=== PATIENT | female | born 1980 | race Asian ===

== ENCOUNTER 2021-04-24 21:46 | Emergency (ER) | payer BC, MEDICAID ==
[~2021-04-24] VITALS: Ht 165.1 cm; Wt 104.5 kg
[2021-04-24 23:44] LABS: BASOPHILS % (AUTO) 0.5 % (0.0-2.0); EOSINOPHILS % (AUTO) 1.6 % (1.0-6.0); HEMATOCRIT 37.3 % (36-46); HEMOGLOBIN 11.9 g/dL (12.0-16.0); LYMPHOCYTES # (AUTO) 2.7 K/uL (1.0-4.8); LYMPHOCYTES % (AUTO) 29.2 % (22.0-44.0); MEAN CORPUSCULAR HEMOGLOBIN 23.6 pg (26.0-34.0); MEAN CORPUSCULAR HGB CONC 31.9 G/dL (31.0-37.0); MEAN CORPUSCULAR VOLUME 74 fL (80-100); MONOCYTES # (AUTO) 1.4 K/uL (0.1-1.0); MONOCYTES % (AUTO) 15.6 % (2.0-9.0); NEUTROPHILS # (AUTO) 4.9 K/uL (1.8-7.7); NEUTROPHILS % (AUTO) 53.1 % (40.0-70.0); PLATELET COUNT (AUTO) 324 K/uL (150-450); RED BLOOD CELL COUNT(AUTO) 5.04 MIL/uL (4.00-5.20); RED CELL DISTRIBUTION WIDTH 16.8 % (11.5-14.5)
[2021-04-25 00:03] LABS: ALANINE AMINOTRANSFERASE 15 U/L (12-78); ALBUMIN 3.1 g/dL (3.4-5.0); ALKALINE PHOSPHATASE 63 U/L (46-116); ANION GAP 5 mmol/L (8-16); ASPARTATE AMINOTRANSFERASE 8 U/L (15-37); BILIRUBIN,TOTAL 0.1 mg/dL (0.1-1.0); CALCIUM, TOTAL 8.7 mg/dL (8.8-10.5); CARBON DIOXIDE 29 mmol/L (22-29); CHLORIDE 103 mmol/L (98-107); CREATININE 0.97 mg/dL (0.60-1.30); GLOMERULAR FILTR. RATE CALC > 60 mL/min (>60); GLUCOSE,RANDOM 73 mg/dL (70-110); HCG,QUANTITATIVE < 1 mIU/mL (0-6); POTASSIUM 4.2 mmol/L (3.5-5.1); SODIUM SERUM 137 mmol/L (136-145); TOTAL PROTEIN, SERUM 7.5 g/dL (6.4-8.2); UREA NITROGEN, BLOOD 13 mg/dL (7-18)
[2021-04-25] MEDS ORDERED: MECLIZINE HCL 25 MG TABLET PO ONE (01:15)
[2021-04-25 03:20] VITALS: BP 150/96
== END 2021-04-25 03:22 | disposition home or self-care (01) ==
LOC: EMS 21:49
DX: R42 Dizziness and giddiness (principal); I10 Essential (primary) hypertension
CPT/HCPCS: 80053; 84702; 85025; 93005; 99284

== ENCOUNTER 2021-05-07 21:33 | Emergency (ER) | payer MEDICAID ==
[~2021-05-07] VITALS: Ht 165.1 cm; Wt 104.5 kg
[2021-05-07 22:12] LABS: BASOPHILS % (AUTO) 1.1 % (0.0-2.0); EOSINOPHILS % (AUTO) 3.9 % (1.0-6.0); HEMATOCRIT 36.4 % (36-46); HEMOGLOBIN 11.7 g/dL (12.0-16.0); LYMPHOCYTES # (AUTO) 2.9 K/uL (1.0-4.8); LYMPHOCYTES % (AUTO) 30.2 % (22.0-44.0); MEAN CORPUSCULAR HEMOGLOBIN 23.6 pg (26.0-34.0); MEAN CORPUSCULAR HGB CONC 32.1 G/dL (31.0-37.0); MEAN CORPUSCULAR VOLUME 74 fL (80-100); MONOCYTES # (AUTO) 1.4 K/uL (0.1-1.0); MONOCYTES % (AUTO) 14.6 % (2.0-9.0); NEUTROPHILS # (AUTO) 4.9 K/uL (1.8-7.7); NEUTROPHILS % (AUTO) 50.2 % (40.0-70.0); PLATELET COUNT (AUTO) 351 K/uL (150-450); RED BLOOD CELL COUNT(AUTO) 4.94 MIL/uL (4.00-5.20); RED CELL DISTRIBUTION WIDTH 17.2 % (11.5-14.5)
[2021-05-07 22:31] LABS: ANION GAP 9 mmol/L (8-16); CARBON DIOXIDE 26 mmol/L (22-29); CHLORIDE 101 mmol/L (98-107); CREATININE 0.71 mg/dL (0.60-1.30); GLOMERULAR FILTR. RATE CALC > 60 mL/min (>60); GLUCOSE,RANDOM 83 mg/dL (70-110); POTASSIUM 3.8 mmol/L (3.5-5.1); SODIUM SERUM 136 mmol/L (136-145); UREA NITROGEN, BLOOD 9 mg/dL (7-18)
[2021-05-07 22:44] LABS: ALANINE AMINOTRANSFERASE 20 U/L (12-78); ALBUMIN 2.9 g/dL (3.4-5.0); ALKALINE PHOSPHATASE 62 U/L (46-116); ASPARTATE AMINOTRANSFERASE 8 U/L (15-37); BILIRUBIN,TOTAL 0.2 mg/dL (0.1-1.0); CREATINE KINASE, TOTAL ONLY 47 U/L (26-192); HCG,QUANTITATIVE < 1 mIU/mL (0-6); LIPASE 76 U/L (73-393); TOTAL PROTEIN, SERUM 7.5 g/dL (6.4-8.2)
[2021-05-08 03:00] VITALS: BP 179/105
== END 2021-05-08 04:18 | disposition home or self-care (01) ==
LOC: EMS 21:34
DX: R07.9 Chest pain, unspecified (principal); I10 Essential (primary) hypertension; E78.00 Pure hypercholesterolemia, unspecified; F31.9 Bipolar disorder, unspecified; J45.909 Unspecified asthma, uncomplicated; F20.9 Schizophrenia, unspecified
CPT/HCPCS: 80053; 82550; 83690; 83735; 84484; 84702; 85025; 85379; 93005; 99284

== ENCOUNTER 2021-05-14 06:10 | Emergency (ER) | payer MEDICAID ==
[~2021-05-14] VITALS: Ht 165.1 cm; Wt 104.5 kg
[2021-05-14] MEDS ORDERED: FLUO20CA36 PO (06:25)
[2021-05-14] MEDS ORDERED: DIVA-80 PO (06:25)
[2021-05-14] MEDS ORDERED: ATOR40TA28 PO (06:25)
[2021-05-14] MEDS ORDERED: LORA10TA7 PO (06:25)
[2021-05-14] MEDS ORDERED: HALO50VI4 IM (06:25)
[2021-05-14] MEDS ORDERED: ALBU8.5H8 IH (06:25)
[2021-05-14] MEDS ORDERED: AMLO-257 PO (06:25)
[2021-05-14 06:59] VITALS: BP 125/82
[2021-05-14] MEDS ORDERED: DiphenhydrAMINE HCL 50 MG/ML VIAL IVP ONE (07:00)
== END 2021-05-14 07:51 | disposition home or self-care (01) ==
LOC: EMS 06:11
DX: G25.9 Extrapyramidal and movement disorder, unspecified (principal); F31.9 Bipolar disorder, unspecified; I10 Essential (primary) hypertension; F20.9 Schizophrenia, unspecified; J45.909 Unspecified asthma, uncomplicated; Z79.899 Other long term (current) drug therapy; Z91.041 Radiographic dye allergy status; Z88.8 Allergy status to other drugs, medicaments and biological substances
CPT/HCPCS: 96372; 99283; J1200

== ENCOUNTER 2021-05-14 09:39 | Emergency (ER) | payer MEDICAID ==
[~2021-05-14] VITALS: Ht 165.1 cm; Wt 104.5 kg
[~2021-05-14 09:39] MED LIST: ALBU8.5H8 IH; AMLO-257 PO; ATOR40TA28 PO; DIVA-80 PO; FLUO20CA36 PO; HALO50VI4 IM; LORA10TA7 PO
[2021-05-14] MEDS ORDERED: HydrOXYzine PAMOATE 50 MG CAPSULE PO ONE (10:15)
[2021-05-14 11:43] VITALS: BP 145/78
== END 2021-05-14 11:46 | disposition home or self-care (01) ==
LOC: EMS 09:39
DX: F41.9 Anxiety disorder, unspecified (principal); I10 Essential (primary) hypertension; F20.9 Schizophrenia, unspecified; E78.00 Pure hypercholesterolemia, unspecified
CPT/HCPCS: 99283

== ENCOUNTER 2021-08-20 04:02 | Emergency (ER) | payer MEDICAID ==
[~2021-08-20] VITALS: Ht 167.6 cm; Wt 99.1 kg
[2021-08-20 07:47] VITALS: BP 126/72
== END 2021-08-20 07:49 | disposition home or self-care (01) ==
LOC: EMS 04:03
DX: R25.2 Cramp and spasm (principal); F31.9 Bipolar disorder, unspecified; E78.00 Pure hypercholesterolemia, unspecified; I10 Essential (primary) hypertension; F20.9 Schizophrenia, unspecified; Z79.899 Other long term (current) drug therapy; Z88.8 Allergy status to other drugs, medicaments and biological substances
CPT/HCPCS: 93970; 99284; Z7502

== ENCOUNTER 2021-08-26 20:19 | Emergency (ER) | payer MEDICAID ==
[~2021-08-26] VITALS: Ht 167.6 cm; Wt 97.3 kg
[2021-08-26 21:29] LABS: BASOPHILS % (AUTO) 1.2 % (0.0-2.0); EOSINOPHILS % (AUTO) 1.2 % (1.0-6.0); HEMATOCRIT 31.5 % (36-46); LYMPHOCYTES # (AUTO) 3.5 K/uL (1.0-4.8); LYMPHOCYTES % (AUTO) 33.3 % (22.0-44.0); MEAN CORPUSCULAR HEMOGLOBIN 21.2 pg (26.0-34.0); MEAN CORPUSCULAR HGB CONC 31.9 G/dL (31.0-37.0); MEAN CORPUSCULAR VOLUME 66 fL (80-100); MONOCYTES # (AUTO) 1.4 K/uL (0.1-1.0); MONOCYTES % (AUTO) 13.3 % (2.0-9.0); NEUTROPHILS # (AUTO) 5.3 K/uL (1.8-7.7); PLATELET COUNT (AUTO) 407 K/uL (150-450); RED BLOOD CELL COUNT(AUTO) 4.74 MIL/uL (4.00-5.20); RED CELL DISTRIBUTION WIDTH 19.1 % (11.5-14.5)
[2021-08-26 21:37] LABS: ANION GAP 6 mmol/L (8-16); CALCIUM, TOTAL 8.6 mg/dL (8.8-10.5); CARBON DIOXIDE 29 mmol/L (22-29); CHLORIDE 101 mmol/L (98-107); CREATININE 0.84 mg/dL (0.60-1.30); GLOMERULAR FILTR. RATE CALC > 60 mL/min (>60); GLUCOSE,RANDOM 84 mg/dL (70-110); POTASSIUM 3.9 mmol/L (3.5-5.1); SODIUM SERUM 136 mmol/L (136-145); UREA NITROGEN, BLOOD 9 mg/dL (7-18)
[2021-08-26 21:43] LABS: ALANINE AMINOTRANSFERASE 14 U/L (12-78); ALBUMIN 3.2 g/dL (3.4-5.0); ALKALINE PHOSPHATASE 60 U/L (46-116); ASPARTATE AMINOTRANSFERASE 10 U/L (15-37); BILIRUBIN,TOTAL 0.2 mg/dL (0.1-1.0); LIPASE 138 U/L (73-393); TOTAL PROTEIN, SERUM 7.3 g/dL (6.4-8.2)
[2021-08-26 22:07] VITALS: BP 115/91
[2021-08-26] MEDS ORDERED: LORazepam 1 MG TABLET PO ONE (22:15)
[2021-08-26] MEDS ORDERED: ONDANSETRON HCL 4 MG/2 ML VIAL IVP ONE (22:15)
[2021-08-26] MEDS ORDERED: KETOROLAC TROMETHAMINE 30 MG/ML VIAL IVP ONE (22:15)
== END 2021-08-26 22:31 | disposition home or self-care (01) ==
LOC: EMS 20:23
DX: F41.9 Anxiety disorder, unspecified (principal); I10 Essential (primary) hypertension; E78.00 Pure hypercholesterolemia, unspecified
CPT/HCPCS: 36415; 80053; 83690; 84484; 84703; 85025; 93005; 96374; 96375; 99284; J1885; J2405

== ENCOUNTER 2021-10-20 20:47 | Emergency (ER) | payer MEDICAID ==
[~2021-10-20] VITALS: Ht 165.1 cm; Wt 99.1 kg
[2021-10-20 22:15] VITALS: BP 129/85
== END 2021-10-20 22:30 | disposition home or self-care (01) ==
LOC: EMS 20:48
DX: B34.9 Viral infection, unspecified (principal); F41.9 Anxiety disorder, unspecified; J45.909 Unspecified asthma, uncomplicated; F31.9 Bipolar disorder, unspecified; E78.00 Pure hypercholesterolemia, unspecified; I10 Essential (primary) hypertension; F20.9 Schizophrenia, unspecified; Z20.822 Contact with and (suspected) exposure to COVID-19; Z88.8 Allergy status to other drugs, medicaments and biological substances
CPT/HCPCS: 99283; U0003

== ENCOUNTER 2021-11-05 16:52 | Emergency (ER) | payer MEDICAID ==
[~2021-11-05] VITALS: Ht 165.1 cm; Wt 99.5 kg
[2021-11-05] MEDS ORDERED: OMEP40CA21 PO (18:30)
[2021-11-05] MEDS ORDERED: HALO100V4 IM (18:30)
[2021-11-05] MEDS ORDERED: AMLO-258 PO (18:30)
[2021-11-05 22:27] VITALS: BP 148/94
[2021-11-05] MEDS ORDERED: KETOROLAC TROMETHAMINE 10 MG TABLET PO ONE (23:00)
== END 2021-11-06 00:30 | disposition home or self-care (01) ==
LOC: EMS 16:54
DX: M25.561 Pain in right knee (principal); I10 Essential (primary) hypertension; E78.00 Pure hypercholesterolemia, unspecified; F31.9 Bipolar disorder, unspecified; F20.9 Schizophrenia, unspecified; F41.9 Anxiety disorder, unspecified; J45.909 Unspecified asthma, uncomplicated; Z88.8 Allergy status to other drugs, medicaments and biological substances; Z79.899 Other long term (current) drug therapy
CPT/HCPCS: 99283

== ENCOUNTER 2021-11-12 17:27 | Emergency (ER) | payer MEDICAID ==
[~2021-11-12] VITALS: Ht 165.1 cm; Wt 86.4 kg
[~2021-11-12 17:27] MED LIST changes: -AMLO-257 PO; +AMLO-258 PO; +HALO100V4 IM; -HALO50VI4 IM; +OMEP40CA21 PO
[2021-11-12 19:40] VITALS: BP 133/79
== END 2021-11-12 19:56 | disposition home or self-care (01) ==
LOC: EMS 17:34
DX: R20.2 Paresthesia of skin (principal); F41.9 Anxiety disorder, unspecified; I10 Essential (primary) hypertension; E78.00 Pure hypercholesterolemia, unspecified; F31.9 Bipolar disorder, unspecified; F20.9 Schizophrenia, unspecified; Z88.8 Allergy status to other drugs, medicaments and biological substances; Z79.899 Other long term (current) drug therapy
CPT/HCPCS: 99281; Z7502

== ENCOUNTER 2021-11-24 20:51 | Emergency (ER) | payer MEDICAID ==
[~2021-11-24] VITALS: Ht 165.1 cm; Wt 100.0 kg
[2021-11-24 20:54] VITALS: BP 133/90
== END 2021-11-24 22:45 | disposition left against medical advice (07) ==
LOC: EMS 20:52
DX: F41.9 Anxiety disorder, unspecified (principal); Z53.21 Procedure and treatment not carried out due to patient leaving prior to being seen by health care provider
CPT/HCPCS: 93005

== ENCOUNTER 2021-11-28 12:34 | Emergency (ER) | payer MEDICAID ==
[~2021-11-28] VITALS: Ht 165.1 cm; Wt 99.5 kg
[2021-11-28 13:31] LABS: BASOPHILS % (AUTO) 1.3 % (0.0-2.0); EOSINOPHILS % (AUTO) 0.8 % (1.0-6.0); HEMATOCRIT 28.5 % (36-46); LYMPHOCYTES # (AUTO) 1.7 K/uL (1.0-4.8); MEAN CORPUSCULAR HEMOGLOBIN 18.7 pg (26.0-34.0); MEAN CORPUSCULAR HGB CONC 31.5 G/dL (31.0-37.0); MEAN CORPUSCULAR VOLUME 59 fL (80-100); MONOCYTES # (AUTO) 1.2 K/uL (0.1-1.0); MONOCYTES % (AUTO) 15.4 % (2.0-9.0); NEUTROPHILS # (AUTO) 4.8 K/uL (1.8-7.7); NEUTROPHILS % (AUTO) 61.5 % (40.0-70.0); PLATELET COUNT (AUTO) 472 K/uL (150-450); RED BLOOD CELL COUNT(AUTO) 4.81 MIL/uL (4.00-5.20); RED CELL DISTRIBUTION WIDTH 19.9 % (11.5-14.5)
[2021-11-28 13:39] LABS: ANION GAP 8 mmol/L (8-16); CALCIUM, TOTAL 8.4 mg/dL (8.8-10.5); CARBON DIOXIDE 27 mmol/L (22-29); CHLORIDE 102 mmol/L (98-107); CREATININE 0.74 mg/dL (0.60-1.30); GLOMERULAR FILTR. RATE CALC > 60 mL/min (>60); GLUCOSE,RANDOM 116 mg/dL (70-110); POTASSIUM 4.1 mmol/L (3.5-5.1); SODIUM SERUM 137 mmol/L (136-145); UREA NITROGEN, BLOOD 11 mg/dL (7-18)
[2021-11-28 13:50] LABS: ALANINE AMINOTRANSFERASE 13 U/L (12-78); ALBUMIN 3.2 g/dL (3.4-5.0); ALKALINE PHOSPHATASE 64 U/L (46-116); ASPARTATE AMINOTRANSFERASE 5 U/L (15-37); BILIRUBIN,TOTAL 0.2 mg/dL (0.1-1.0); HCG,QUANTITATIVE < 1 mIU/mL (0-6); TOTAL PROTEIN, SERUM 7.2 g/dL (6.4-8.2); VALPROIC ACID 77 mcg/mL (50-100)
[2021-11-28 14:10] VITALS: BP 137/88
== END 2021-11-28 14:26 | disposition home or self-care (01) ==
LOC: EMS 12:35
DX: D64.9 Anemia, unspecified (principal); R06.02 Shortness of breath; F41.9 Anxiety disorder, unspecified; F31.9 Bipolar disorder, unspecified; E78.00 Pure hypercholesterolemia, unspecified; I10 Essential (primary) hypertension; F20.9 Schizophrenia, unspecified; Z90.89 Acquired absence of other organs; Z91.010 Allergy to peanuts; Z88.8 Allergy status to other drugs, medicaments and biological substances
CPT/HCPCS: 71045; 80053; 80164; 84439; 84484; 84702; 85025; 85379; 93005; 99285; 36415-L1; 36415-TC

== ENCOUNTER 2022-01-17 13:26 | Emergency (ER) | payer MEDICAID ==
[~2022-01-17] VITALS: Ht 165.1 cm; Wt 97.0 kg
[2022-01-17 14:24] LABS: BASOPHILS % (AUTO) 0.9 % (0.0-2.0); EOSINOPHILS % (AUTO) 0.6 % (1.0-6.0); HEMATOCRIT 38.9 % (36-46); HEMOGLOBIN 12.5 g/dL (12.0-16.0); LYMPHOCYTES # (AUTO) 2.3 K/uL (1.0-4.8); MEAN CORPUSCULAR HEMOGLOBIN 21.4 pg (26.0-34.0); MEAN CORPUSCULAR HGB CONC 32.2 G/dL (31.0-37.0); MEAN CORPUSCULAR VOLUME 67 fL (80-100); MONOCYTES # (AUTO) 0.6 K/uL (0.1-1.0); MONOCYTES % (AUTO) 7.8 % (2.0-9.0); NEUTROPHILS % (AUTO) 61.7 % (40.0-70.0); PLATELET COUNT (AUTO) 408 K/uL (150-450); RED BLOOD CELL COUNT(AUTO) 5.84 MIL/uL (4.00-5.20)
[2022-01-17 14:37] LABS: ANION GAP 10 mmol/L (8-16); CALCIUM, TOTAL 9.2 mg/dL (8.8-10.5); CARBON DIOXIDE 25 mmol/L (22-29); CHLORIDE 98 mmol/L (98-107); CREATININE 0.89 mg/dL (0.60-1.30); GLOMERULAR FILTR. RATE CALC > 60 mL/min (>60); GLUCOSE,RANDOM 141 mg/dL (70-110); POTASSIUM 3.8 mmol/L (3.5-5.1); SODIUM SERUM 133 mmol/L (136-145); UREA NITROGEN, BLOOD 8 mg/dL (7-18)
[2022-01-17 14:44] LABS: ALANINE AMINOTRANSFERASE 30 U/L (12-78); ALBUMIN 3.7 g/dL (3.4-5.0); ALKALINE PHOSPHATASE 73 U/L (46-116); ASPARTATE AMINOTRANSFERASE 16 U/L (15-37); BILIRUBIN,TOTAL 0.3 mg/dL (0.1-1.0); TOTAL PROTEIN, SERUM 8.3 g/dL (6.4-8.2)
[2022-01-17 15:55] VITALS: BP 127/83
[2022-01-17 16:25] LABS: AMPHET/METH SCREEN,URINE NEGATIVE (NEGATIVE); BARBITURATE SCREEN, URINE NEGATIVE (NEGATIVE); BENZODIAZEPINES SCREEN,URINE NEGATIVE (NEGATIVE); CANNABINOID SCREEN,URINE NEGATIVE (NEGATIVE); COCAINE SCREEN,URINE NEGATIVE (NEGATIVE); METHADONE SCREEN, URINE NEGATIVE (NEGATIVE); OPIATE SCREEN,URINE NEGATIVE (NEGATIVE)
[2022-01-17 16:28] LABS: PHENCYCLIDINE SCREEN,URINE NEGATIVE (NEGATIVE)
== END 2022-01-17 16:36 | disposition home or self-care (01) ==
LOC: EMS 13:26
DX: R53.1 Weakness (principal); F31.9 Bipolar disorder, unspecified; Z90.89 Acquired absence of other organs; Z88.8 Allergy status to other drugs, medicaments and biological substances; Z91.010 Allergy to peanuts
CPT/HCPCS: 36415; 80053; 80307; 81025; 85025; 99283; G0480

== ENCOUNTER 2022-02-03 12:17 | Emergency (ER) | payer MEDICAID ==
[~2022-02-03] VITALS: Ht 165.1 cm; Wt 99.0 kg
[2022-02-03 13:58] VITALS: BP 145/76
== END 2022-02-03 15:50 | disposition home or self-care (01) ==
LOC: EMS 12:17
DX: I10 Essential (primary) hypertension (principal); J45.909 Unspecified asthma, uncomplicated; F31.9 Bipolar disorder, unspecified; K21.9 Gastro-esophageal reflux disease without esophagitis; F20.9 Schizophrenia, unspecified; Z91.010 Allergy to peanuts; Z88.8 Allergy status to other drugs, medicaments and biological substances; Z90.89 Acquired absence of other organs
CPT/HCPCS: 99281; Z7502

== ENCOUNTER 2022-03-14 12:24 | Emergency (ER) | payer MEDICAID ==
[~2022-03-14] VITALS: Ht 165.1 cm; Wt 88.2 kg
[~2022-03-14 12:24] MED LIST changes: +HALO100V36 IM; -HALO100V4 IM
[2022-03-14] MEDS ORDERED: ACETAMINOPHEN 500 MG TABLET PO ONE (14:15)
[2022-03-14] MEDS ORDERED: ONDANSETRON HCL 4 MG TABLET PO ONE (14:15)
[2022-03-14 14:23] LABS: BASOPHILS % (AUTO) 0.9 % (0.0-2.0); EOSINOPHILS % (AUTO) 0.5 % (1.0-6.0); HEMATOCRIT 37.9 % (36-46); HEMOGLOBIN 12.3 g/dL (12.0-16.0); LYMPHOCYTES # (AUTO) 2.2 K/uL (1.0-4.8); LYMPHOCYTES % (AUTO) 24.9 % (22.0-44.0); MEAN CORPUSCULAR HGB CONC 32.4 G/dL (31.0-37.0); MEAN CORPUSCULAR VOLUME 68 fL (80-100); MONOCYTES # (AUTO) 0.7 K/uL (0.1-1.0); MONOCYTES % (AUTO) 8.3 % (2.0-9.0); NEUTROPHILS # (AUTO) 5.7 K/uL (1.8-7.7); NEUTROPHILS % (AUTO) 65.4 % (40.0-70.0); PLATELET COUNT (AUTO) 402 K/uL (150-450); RED BLOOD CELL COUNT(AUTO) 5.59 MIL/uL (4.00-5.20); RED CELL DISTRIBUTION WIDTH 21.8 % (11.5-14.5)
[2022-03-14 14:41] LABS: CALCIUM, TOTAL 9.1 mg/dL (8.8-10.5); POTASSIUM 3.1 mmol/L (3.5-5.1)
[2022-03-14] MEDS ORDERED: MAG HYDROX/AL HYDROX/SIMETH ES 30 ML SUSPENSION UDCUP PO ONE (14:45)
[2022-03-14 14:49] LABS: ALBUMIN 3.3 g/dL (3.4-5.0); BILIRUBIN,TOTAL 0.4 mg/dL (0.1-1.0); TOTAL PROTEIN, SERUM 7.3 g/dL (6.4-8.2)
[2022-03-14] MEDS ORDERED: ONDA-104 PO (14:50)
[2022-03-14] MEDS ORDERED: MAG30ORA11 PO (14:50)
[2022-03-14] MEDS ORDERED: ACET-66 PO (14:50)
[2022-03-14 15:05] LABS: CREATININE 1.01 mg/dL (0.60-1.30)
[2022-03-14 15:30] VITALS: BP 124/79
[2022-03-14] MEDS ORDERED: ACET-2080 PO (15:35)
== END 2022-03-14 15:46 | disposition home or self-care (01) ==
LOC: EMS 12:24
DX: R10.13 Epigastric pain (principal); I10 Essential (primary) hypertension; E03.9 Hypothyroidism, unspecified; J45.909 Unspecified asthma, uncomplicated; K21.9 Gastro-esophageal reflux disease without esophagitis; Z79.899 Other long term (current) drug therapy; Z91.010 Allergy to peanuts
CPT/HCPCS: 36415; 80053; 83690; 84703; 85025; 99284; Q0162

== ENCOUNTER 2022-03-19 19:19 | Emergency (ER) | payer MEDICAID ==
[~2022-03-19] VITALS: Ht 165.1 cm; Wt 84.5 kg
[~2022-03-19 19:19] MED LIST changes: +ACET-2080 PO; +MAG30ORA11 PO; +ONDA-104 PO
[2022-03-19 19:31] VITALS: BP 125/91
[2022-03-19 20:54] LABS: BASOPHILS % (AUTO) 0.8 % (0.0-2.0); EOSINOPHILS % (AUTO) 0.5 % (1.0-6.0); HEMATOCRIT 40.5 % (36-46); HEMOGLOBIN 13.1 g/dL (12.0-16.0); LYMPHOCYTES # (AUTO) 2.2 K/uL (1.0-4.8); LYMPHOCYTES % (AUTO) 27.2 % (22.0-44.0); MEAN CORPUSCULAR HEMOGLOBIN 22.2 pg (26.0-34.0); MEAN CORPUSCULAR HGB CONC 32.3 G/dL (31.0-37.0); MEAN CORPUSCULAR VOLUME 69 fL (80-100); MONOCYTES # (AUTO) 0.8 K/uL (0.1-1.0); MONOCYTES % (AUTO) 10.5 % (2.0-9.0); NEUTROPHILS # (AUTO) 4.9 K/uL (1.8-7.7); PLATELET COUNT (AUTO) 448 K/uL (150-450); RED BLOOD CELL COUNT(AUTO) 5.91 MIL/uL (4.00-5.20); RED CELL DISTRIBUTION WIDTH 20.6 % (11.5-14.5)
[2022-03-19 21:19] LABS: ALANINE AMINOTRANSFERASE 33 U/L (12-78); ALBUMIN 3.5 g/dL (3.4-5.0); ALKALINE PHOSPHATASE 92 U/L (46-116); ANION GAP 9 mmol/L (8-16); ASPARTATE AMINOTRANSFERASE 16 U/L (15-37); BILIRUBIN,TOTAL 0.3 mg/dL (0.1-1.0); CALCIUM, TOTAL 9.1 mg/dL (8.8-10.5); CARBON DIOXIDE 31 mmol/L (22-29); CHLORIDE 95 mmol/L (98-107); CREATININE 0.75 mg/dL (0.60-1.30); GLOMERULAR FILTR. RATE CALC > 60 mL/min (>60); GLUCOSE,RANDOM 94 mg/dL (70-110); HCG,QUANTITATIVE < 1 mIU/mL (0-6); SODIUM SERUM 135 mmol/L (136-145); TOTAL PROTEIN, SERUM 7.7 g/dL (6.4-8.2); UREA NITROGEN, BLOOD 9 mg/dL (7-18)
[2022-03-19 21:25] LABS: POTASSIUM 2.8 mmol/L (3.5-5.1)
[2022-03-19] MEDS ORDERED: POTASSIUM CHLORIDE 20 MEQ ER TABLET PO ONE (21:30)
[2022-03-19 21:49] LABS: PLATELET MORPHOLOGY COMMENT GIANT PLTS PRESENT
== END 2022-03-19 21:49 | disposition home or self-care (01) ==
LOC: EMS 19:20
DX: N93.9 Abnormal uterine and vaginal bleeding, unspecified (principal); E87.6 Hypokalemia; I10 Essential (primary) hypertension; E03.9 Hypothyroidism, unspecified; K21.9 Gastro-esophageal reflux disease without esophagitis; F31.9 Bipolar disorder, unspecified; J45.909 Unspecified asthma, uncomplicated; Z88.8 Allergy status to other drugs, medicaments and biological substances; Z79.899 Other long term (current) drug therapy
CPT/HCPCS: 80053; 84702; 85025; 99283

== ENCOUNTER 2022-03-23 13:53 | Emergency (ER) | payer MEDICAID ==
[~2022-03-23] VITALS: Ht 165.1 cm; Wt 86.4 kg
[2022-03-23] MEDS ORDERED: ONDANSETRON HCL 4 MG/2 ML VIAL IVP ONE (14:45)
[2022-03-23] MEDS ORDERED: KETOROLAC TROMETHAMINE 30 MG/ML VIAL IVP ONE (14:45)
[2022-03-23] MEDS ORDERED: FAMOTIDINE 10 MG/ML 2 ML VIAL IVP ONE (14:45)
[2022-03-23] MEDS ORDERED: MAG HYDROX/AL HYDROX/SIMETH 30 ML SUSP UDCUP PO ONE (14:45)
[2022-03-23 14:51] LABS: BASOPHILS % (AUTO) 0.7 % (0.0-2.0); EOSINOPHILS % (AUTO) 0.1 % (1.0-6.0); HEMATOCRIT 39.4 % (36-46); HEMOGLOBIN 12.9 g/dL (12.0-16.0); LYMPHOCYTES % (AUTO) 17.7 % (22.0-44.0); MEAN CORPUSCULAR HEMOGLOBIN 22.2 pg (26.0-34.0); MEAN CORPUSCULAR HGB CONC 32.7 G/dL (31.0-37.0); MEAN CORPUSCULAR VOLUME 68 fL (80-100); MONOCYTES % (AUTO) 8.3 % (2.0-9.0); NEUTROPHILS # (AUTO) 8.4 K/uL (1.8-7.7); NEUTROPHILS % (AUTO) 73.2 % (40.0-70.0); PLATELET COUNT (AUTO) 412 K/uL (150-450); RED CELL DISTRIBUTION WIDTH 20.1 % (11.5-14.5)
[2022-03-23 15:11] LABS: ALANINE AMINOTRANSFERASE 21 U/L (12-78); ALBUMIN 3.3 g/dL (3.4-5.0); ALKALINE PHOSPHATASE 82 U/L (46-116); ANION GAP 10 mmol/L (8-16); ASPARTATE AMINOTRANSFERASE 11 U/L (15-37); BILIRUBIN,TOTAL 0.3 mg/dL (0.1-1.0); CALCIUM, TOTAL 9.2 mg/dL (8.8-10.5); CARBON DIOXIDE 28 mmol/L (22-29); CHLORIDE 96 mmol/L (98-107); CREATININE 0.77 mg/dL (0.60-1.30); GLOMERULAR FILTR. RATE CALC > 60 mL/min (>60); GLUCOSE,RANDOM 93 mg/dL (70-110); HCG,QUANTITATIVE 1 mIU/mL (0-6); LIPASE 59 U/L (73-393); SODIUM SERUM 134 mmol/L (136-145); TOTAL PROTEIN, SERUM 7.1 g/dL (6.4-8.2); UREA NITROGEN, BLOOD 6 mg/dL (7-18)
[2022-03-23 15:14] LABS: POTASSIUM 2.5 mmol/L (3.5-5.1)
[2022-03-23] MEDS ORDERED: POTASSIUM CHLORIDE 20 MEQ ER TABLET PO ONE (15:15)
[2022-03-23] MEDS ORDERED: SODIUM CHLORIDE 0.9% 250 ML IV ONE (15:25)
[2022-03-23] MEDS: POTASSIUM CHL 10 MEQ/WATER 50 ML IV SCH ×3 (15:27→17:31)
[2022-03-23 17:00] LABS: COVID AG,FIA SOURCE NASOPHARYNGEAL
[2022-03-23 17:50] LABS: APPEARANCE,URINE CLEAR (CLEAR); BILIRUBIN,URINE NEGATIVE (NEGATIVE); GLUCOSE, URINE (UA) NEGATIVE (NEGATIVE); KETONES,URINE NEGATIVE (NEGATIVE); LEUKOCYTE ESTERASE ,URINE NEGATIVE (NEGATIVE); NITRATE,URINE NEGATIVE (NEGATIVE); OCCULT BLOOD,URINE NEGATIVE (NEGATIVE); PH,URINE 6.5 (5.0-8.0); PROTEIN,URINE NEGATIVE (NEGATIVE); SPECIFIC GRAVITIY, URINE 1.006 (1.003-1.030); UROBILINOGEN,URINE <=1.0 mg/dL (<=1.0)
[2022-03-23 18:20] VITALS: BP 146/83
== END 2022-03-23 20:16 | disposition home or self-care (01) ==
LOC: EMS 13:53
DX: R10.13 Epigastric pain (principal); Z20.822 Contact with and (suspected) exposure to COVID-19; E87.6 Hypokalemia; E03.9 Hypothyroidism, unspecified; F10.20 Alcohol dependence, uncomplicated; F31.9 Bipolar disorder, unspecified; F20.9 Schizophrenia, unspecified; J45.909 Unspecified asthma, uncomplicated; K21.9 Gastro-esophageal reflux disease without esophagitis; I10 Essential (primary) hypertension; Z90.49 Acquired absence of other specified parts of digestive tract
CPT/HCPCS: 36415; 76700; 80053; 81003; 83690; 84132; 84702; 85025; 87426; 96365; 96366; 96375; 99285; J1885; J2405; J3480; J3490; J7050

== ENCOUNTER 2022-04-10 09:39 | Emergency (ER) | payer MEDICAID ==
[~2022-04-10] VITALS: Ht 165.1 cm; Wt 81.8 kg
[2022-04-10 10:10] VITALS: BP 116/70
[2022-04-10] MEDS ORDERED: RISP3TAB44 PO (13:43)
[2022-04-10] MEDS ORDERED: RisperiDONE 1 MG TABLET PO ONE (13:45)
[2022-04-10 14:06] LABS: BASOPHILS % (AUTO) 1.3 % (0.0-2.0); EOSINOPHILS % (AUTO) 1.1 % (1.0-6.0); HEMATOCRIT 37.7 % (36-46); HEMOGLOBIN 12.2 g/dL (12.0-16.0); LYMPHOCYTES # (AUTO) 2.5 K/uL (1.0-4.8); LYMPHOCYTES % (AUTO) 32.9 % (22.0-44.0); MEAN CORPUSCULAR HEMOGLOBIN 22.1 pg (26.0-34.0); MEAN CORPUSCULAR HGB CONC 32.2 G/dL (31.0-37.0); MEAN CORPUSCULAR VOLUME 69 fL (80-100); MONOCYTES # (AUTO) 0.7 K/uL (0.1-1.0); MONOCYTES % (AUTO) 9.3 % (2.0-9.0); NEUTROPHILS # (AUTO) 4.2 K/uL (1.8-7.7); NEUTROPHILS % (AUTO) 55.4 % (40.0-70.0); PLATELET COUNT (AUTO) 349 K/uL (150-450); RED BLOOD CELL COUNT(AUTO) 5.51 MIL/uL (4.00-5.20); RED CELL DISTRIBUTION WIDTH 19.1 % (11.5-14.5)
[2022-04-10 14:15] LABS: ANION GAP 7 mmol/L (8-16); CARBON DIOXIDE 27 mmol/L (22-29); CHLORIDE 101 mmol/L (98-107); CREATININE 0.79 mg/dL (0.60-1.30); GLUCOSE,RANDOM 85 mg/dL (70-110); POTASSIUM 3.8 mmol/L (3.5-5.1); SODIUM SERUM 135 mmol/L (136-145); UREA NITROGEN, BLOOD 7 mg/dL (7-18)
[2022-04-10 14:16] LABS: GLOMERULAR FILTR. RATE CALC > 60 mL/min (>60)
[2022-04-10 14:20] LABS: ALANINE AMINOTRANSFERASE 19 U/L (12-78); ALBUMIN 3.3 g/dL (3.4-5.0); ALKALINE PHOSPHATASE 75 U/L (46-116); ASPARTATE AMINOTRANSFERASE 10 U/L (15-37); BILIRUBIN,TOTAL 0.4 mg/dL (0.1-1.0); TOTAL PROTEIN, SERUM 7.4 g/dL (6.4-8.2)
== END 2022-04-10 15:31 | disposition home or self-care (01) ==
LOC: EMS 09:39
DX: F20.9 Schizophrenia, unspecified (principal); F31.9 Bipolar disorder, unspecified; F10.20 Alcohol dependence, uncomplicated; J45.909 Unspecified asthma, uncomplicated; K21.9 Gastro-esophageal reflux disease without esophagitis; I10 Essential (primary) hypertension; E03.9 Hypothyroidism, unspecified; Z90.49 Acquired absence of other specified parts of digestive tract; Z98.51 Tubal ligation status; Z91.040 Latex allergy status
CPT/HCPCS: 36415; 80053; 85025; 99283; G0480

== ENCOUNTER 2022-04-29 10:26 | Emergency (ER) | payer MEDICAID ==
[~2022-04-29] VITALS: Ht 165.1 cm; Wt 95.5 kg
[~2022-04-29 10:26] MED LIST changes: -ACET-2080 PO; -ONDA-104 PO; +RISP3TAB44 PO
[2022-04-29 11:30] LABS: BASOPHILS % (AUTO) 1.1 % (0.0-2.0); EOSINOPHILS % (AUTO) 9.7 % (1.0-6.0); HEMATOCRIT 24.7 % (36-46); HEMOGLOBIN 7.8 g/dL (12.0-16.0); LYMPHOCYTES # (AUTO) 1.7 K/uL (1.0-4.8); LYMPHOCYTES % (AUTO) 26.8 % (22.0-44.0); MEAN CORPUSCULAR HEMOGLOBIN 21.2 pg (26.0-34.0); MEAN CORPUSCULAR HGB CONC 31.6 G/dL (31.0-37.0); MEAN CORPUSCULAR VOLUME 67 fL (80-100); MONOCYTES # (AUTO) 0.9 K/uL (0.1-1.0); MONOCYTES % (AUTO) 14.6 % (2.0-9.0); NEUTROPHILS # (AUTO) 3.1 K/uL (1.8-7.7); NEUTROPHILS % (AUTO) 47.8 % (40.0-70.0); PLATELET COUNT (AUTO) 543 K/uL (150-450); RED BLOOD CELL COUNT(AUTO) 3.69 MIL/uL (4.00-5.20); RED CELL DISTRIBUTION WIDTH 19.1 % (11.5-14.5)
[2022-04-29 11:40] LABS: ANION GAP 8 mmol/L (8-16); CALCIUM, TOTAL 8.7 mg/dL (8.8-10.5); CARBON DIOXIDE 25 mmol/L (22-29); CHLORIDE 105 mmol/L (98-107); CREATININE 0.71 mg/dL (0.60-1.30); GLUCOSE,RANDOM 137 mg/dL (70-110); SODIUM SERUM 138 mmol/L (136-145); UREA NITROGEN, BLOOD 10 mg/dL (7-18)
[2022-04-29 11:42] LABS: GLOMERULAR FILTR. RATE CALC > 60 mL/min (>60)
[2022-04-29 11:45] LABS: ALANINE AMINOTRANSFERASE 27 U/L (12-78); ALBUMIN 2.8 g/dL (3.4-5.0); ALKALINE PHOSPHATASE 74 U/L (46-116); ASPARTATE AMINOTRANSFERASE 9 U/L (15-37); BILIRUBIN,TOTAL 0.2 mg/dL (0.1-1.0); TOTAL PROTEIN, SERUM 6.7 g/dL (6.4-8.2)
[2022-04-29] MEDS ORDERED: APIXABAN 5 MG TABLET PO ONE (12:45)
[2022-04-29] MEDS ORDERED: IOHEXOL 350 MG/ML 150 ML VIAL ONE (13:09)
[2022-04-29] MEDS ORDERED: SODIUM CHLORIDE 0.9% 100 ML ONE (13:09)
[2022-04-29 13:10] LABS: PROTHROMBIN TIME 10.9 SEC (9.4-11.6)
[2022-04-29] MEDS ORDERED: ONDANSETRON HCL 4 MG/2 ML VIAL IVP ONE (13:15)
[2022-04-29 14:42] VITALS: BP 136/81
[2022-04-29] MEDS ORDERED: APIX5TAB PO (14:58)
[2022-04-30] MEDS ORDERED: DIVA-112 PO (13:33)
[2022-04-30] MEDS ORDERED: HYDR12.54 PO (13:33)
[2022-04-30] MEDS ORDERED: FAMO20 PO (13:33)
[2022-04-30] MEDS ORDERED: LOSA-381 PO (13:33)
[2022-04-30] MEDS ORDERED: HYDR-4808 PO (13:33)
[2022-05-01] MEDS ORDERED: APIX5TAB PO (10:58)
== END 2022-04-29 15:15 | disposition home or self-care (01) ==
LOC: EMS 10:28
DX: I82.621 Acute embolism and thrombosis of deep veins of right upper extremity (principal); I10 Essential (primary) hypertension; J45.909 Unspecified asthma, uncomplicated; E03.9 Hypothyroidism, unspecified; K21.9 Gastro-esophageal reflux disease without esophagitis; Z88.6 Allergy status to analgesic agent; Z88.8 Allergy status to other drugs, medicaments and biological substances; Z79.899 Other long term (current) drug therapy
CPT/HCPCS: 99285; 96374; 71275; 93971; 80053; 85025; 85610; 85730; 36415; 81025; J2405; Q9967; J7050

== ENCOUNTER 2022-05-06 09:42 | Emergency (ER) | payer MEDICAID ==
[~2022-05-06] VITALS: Ht 167.6 cm; Wt 84.1 kg
[~2022-05-06 09:42] MED LIST changes: +APIX5TAB PO; +DIVA-112 PO; -DIVA-80 PO; +FAMO20 PO; -FLUO20CA36 PO; -HALO100V36 IM; -LORA10TA7 PO; -MAG30ORA11 PO; -OMEP40CA21 PO; -RISP3TAB44 PO
[2022-05-06 09:47] VITALS: BP 113/85
== END 2022-05-06 11:54 | disposition home or self-care (01) ==
LOC: EMS 09:42
DX: E11.9 Type 2 diabetes mellitus without complications (principal); J45.909 Unspecified asthma, uncomplicated; F31.9 Bipolar disorder, unspecified; I10 Essential (primary) hypertension; E03.9 Hypothyroidism, unspecified; F20.9 Schizophrenia, unspecified; Z87.19 Personal history of other diseases of the digestive system; Z86.2 Personal history of diseases of the blood and blood-forming organs and certain disorders involving the immune mechanism; Z90.49 Acquired absence of other specified parts of digestive tract; Z98.51 Tubal ligation status; Z98.890 Other specified postprocedural states; Z88.8 Allergy status to other drugs, medicaments and biological substances; Z91.010 Allergy to peanuts
CPT/HCPCS: 82962; 99282

== ENCOUNTER 2022-06-11 04:55 | Emergency (ER) | payer MEDICAID ==
[~2022-06-11] VITALS: Ht 165.1 cm; Wt 95.5 kg
[2022-06-11 06:05] LABS: BASOPHILS % (AUTO) 0.9 % (0.0-2.0); EOSINOPHILS % (AUTO) 3.2 % (1.0-6.0); HEMATOCRIT 31.2 % (36-46); HEMOGLOBIN 9.6 g/dL (12.0-16.0); LYMPHOCYTES # (AUTO) 3.3 K/uL (1.0-4.8); LYMPHOCYTES % (AUTO) 34.3 % (22.0-44.0); MEAN CORPUSCULAR HEMOGLOBIN 19.5 pg (26.0-34.0); MEAN CORPUSCULAR HGB CONC 30.7 G/dL (31.0-37.0); MEAN CORPUSCULAR VOLUME 63 fL (80-100); MONOCYTES % (AUTO) 10.7 % (2.0-9.0); NEUTROPHILS # (AUTO) 4.9 K/uL (1.8-7.7); NEUTROPHILS % (AUTO) 50.9 % (40.0-70.0); PLATELET COUNT (AUTO) 487 K/uL (150-450); RED BLOOD CELL COUNT(AUTO) 4.91 MIL/uL (4.00-5.20); RED CELL DISTRIBUTION WIDTH 19.3 % (11.5-14.5)
[2022-06-11 06:09] LABS: ANION GAP 8 mmol/L (8-16); CALCIUM, TOTAL 8.8 mg/dL (8.8-10.5); CARBON DIOXIDE 26 mmol/L (22-29); CHLORIDE 99 mmol/L (98-107); CREATININE 0.83 mg/dL (0.60-1.30); GLUCOSE,RANDOM 104 mg/dL (70-110); POTASSIUM 3.7 mmol/L (3.5-5.1); SODIUM SERUM 133 mmol/L (136-145); UREA NITROGEN, BLOOD 6 mg/dL (7-18)
[2022-06-11 06:10] LABS: GLOMERULAR FILTR. RATE CALC > 60 mL/min (>60)
[2022-06-11 06:14] LABS: ALANINE AMINOTRANSFERASE 12 U/L (12-78); ALBUMIN 3.3 g/dL (3.4-5.0); ALKALINE PHOSPHATASE 61 U/L (46-116); ASPARTATE AMINOTRANSFERASE 5 U/L (15-37); BILIRUBIN,TOTAL 0.2 mg/dL (0.1-1.0); TOTAL PROTEIN, SERUM 7.4 g/dL (6.4-8.2)
[2022-06-11 09:06] VITALS: BP 128/81
== END 2022-06-11 09:07 | disposition home or self-care (01) ==
LOC: EMS 04:58
DX: M79.601 Pain in right arm (principal); J45.909 Unspecified asthma, uncomplicated; F31.9 Bipolar disorder, unspecified; E11.9 Type 2 diabetes mellitus without complications; I10 Essential (primary) hypertension; E03.9 Hypothyroidism, unspecified; F20.9 Schizophrenia, unspecified; Z90.49 Acquired absence of other specified parts of digestive tract; Z98.890 Other specified postprocedural states; Z88.8 Allergy status to other drugs, medicaments and biological substances; Z91.018 Allergy to other foods; Z91.040 Latex allergy status
CPT/HCPCS: 80053; 85025; 85379; 93971; 99284

== ENCOUNTER 2022-07-06 14:36 | Emergency (ER) | payer MEDICAID ==
[~2022-07-06] VITALS: Ht 170.2 cm; Wt 95.5 kg
[2022-07-06] MEDS ORDERED: QUET25TA PO (15:10)
[2022-07-06] MEDS ORDERED: LOSA-381 PO (15:10)
[2022-07-06 16:17] LABS: ANION GAP 7 mmol/L (8-16); BASOPHILS % (AUTO) 0.8 % (0.0-2.0); CALCIUM, TOTAL 9.6 mg/dL (8.8-10.5); CARBON DIOXIDE 26 mmol/L (22-29); CHLORIDE 103 mmol/L (98-107); CREATININE 0.78 mg/dL (0.60-1.30); EOSINOPHILS % (AUTO) 1.1 % (1.0-6.0); GLUCOSE,RANDOM 88 mg/dL (70-110); HEMATOCRIT 31.4 % (36-46); HEMOGLOBIN 9.4 g/dL (12.0-16.0); LYMPHOCYTES # (AUTO) 2.2 K/uL (1.0-4.8); LYMPHOCYTES % (AUTO) 23.4 % (22.0-44.0); MEAN CORPUSCULAR HEMOGLOBIN 18.4 pg (26.0-34.0); MEAN CORPUSCULAR VOLUME 61 fL (80-100); MONOCYTES # (AUTO) 0.6 K/uL (0.1-1.0); MONOCYTES % (AUTO) 6.2 % (2.0-9.0); NEUTROPHILS # (AUTO) 6.4 K/uL (1.8-7.7); NEUTROPHILS % (AUTO) 68.5 % (40.0-70.0); PLATELET COUNT (AUTO) 510 K/uL (150-450); POTASSIUM 4.1 mmol/L (3.5-5.1); RED BLOOD CELL COUNT(AUTO) 5.14 MIL/uL (4.00-5.20); RED CELL DISTRIBUTION WIDTH 18.9 % (11.5-14.5); SODIUM SERUM 136 mmol/L (136-145); UREA NITROGEN, BLOOD 11 mg/dL (7-18)
[2022-07-06 16:18] LABS: GLOMERULAR FILTR. RATE CALC > 60 mL/min (>60)
[2022-07-06 16:23] LABS: ALANINE AMINOTRANSFERASE 34 U/L (12-78); ALBUMIN 3.9 g/dL (3.4-5.0); ALKALINE PHOSPHATASE 79 U/L (46-116); ASPARTATE AMINOTRANSFERASE 18 U/L (15-37); BILIRUBIN,TOTAL 0.3 mg/dL (0.1-1.0); TOTAL PROTEIN, SERUM 7.9 g/dL (6.4-8.2)
[2022-07-06 16:43] LABS: PATHOLOGY REVIEW, DIFF YES
[2022-07-06 18:09] VITALS: BP 114/64
== END 2022-07-06 18:14 | disposition home or self-care (01) ==
LOC: EMS 14:38
DX: F41.9 Anxiety disorder, unspecified (principal); R42 Dizziness and giddiness; K21.9 Gastro-esophageal reflux disease without esophagitis; J45.909 Unspecified asthma, uncomplicated; I10 Essential (primary) hypertension; Z91.010 Allergy to peanuts; Z91.041 Radiographic dye allergy status; Z88.8 Allergy status to other drugs, medicaments and biological substances; Z79.899 Other long term (current) drug therapy
CPT/HCPCS: 80053; 85025; 99283

== ENCOUNTER 2022-08-11 16:01 | Emergency (ER) | payer MEDICAID ==
[~2022-08-11] VITALS: Ht 165.1 cm; Wt 88.0 kg
[~2022-08-11 16:01] MED LIST changes: -DIVA-112 PO; +LOSA-381 PO; +QUET25TA PO
[2022-08-11] MEDS ORDERED: GABAPENTIN 300 MG CAPSULE PO ONE (17:00)
[2022-08-11 17:54] VITALS: BP 112/70
== END 2022-08-11 18:56 | disposition home or self-care (01) ==
LOC: EMS 16:01
DX: M79.604 Pain in right leg (principal); E11.9 Type 2 diabetes mellitus without complications; E03.9 Hypothyroidism, unspecified; F20.9 Schizophrenia, unspecified; F31.9 Bipolar disorder, unspecified; F10.20 Alcohol dependence, uncomplicated; I10 Essential (primary) hypertension; J45.909 Unspecified asthma, uncomplicated; K21.9 Gastro-esophageal reflux disease without esophagitis; Z90.49 Acquired absence of other specified parts of digestive tract; Z98.51 Tubal ligation status; Z96.89 Presence of other specified functional implants; Z88.5 Allergy status to narcotic agent
CPT/HCPCS: 93971; 99284; Z7502; Z7610

== ENCOUNTER 2022-11-12 20:10 | Emergency (ER) | payer MEDICAID ==
[~2022-11-12] VITALS: Ht 165.1 cm; Wt 100.0 kg
[2022-11-12 20:18] VITALS: BP 143/97
[2022-11-12] MEDS ORDERED: ACETAMINOPHEN 500 MG TABLET PO ONE (22:30)
[2022-11-12] MEDS ORDERED: MAG HYDROX/AL HYDROX/SIMETH 30 ML SUSP UDCUP PO ONE (22:30)
[2022-11-12] MEDS ORDERED: ONDANSETRON HCL 4 MG TABLET PO ONE (22:30)
[2022-11-12] MEDS ORDERED: FAMOTIDINE 20 MG TABLET PO ONE (22:30)
[2022-11-12 23:16] LABS: BASOPHILS % (AUTO) 1.4 % (0.0-2.0); EOSINOPHILS % (AUTO) 2.5 % (1.0-6.0); HEMATOCRIT 43.6 % (36-46); HEMOGLOBIN 13.7 g/dL (12.0-16.0); LYMPHOCYTES # (AUTO) 3.2 K/uL (1.0-4.8); MEAN CORPUSCULAR HEMOGLOBIN 22.8 pg (26.0-34.0); MEAN CORPUSCULAR HGB CONC 31.5 G/dL (31.0-37.0); MEAN CORPUSCULAR VOLUME 72 fL (80-100); MONOCYTES # (AUTO) 0.9 K/uL (0.1-1.0); MONOCYTES % (AUTO) 9.5 % (2.0-9.0); NEUTROPHILS # (AUTO) 5.2 K/uL (1.8-7.7); NEUTROPHILS % (AUTO) 53.6 % (40.0-70.0); PLATELET COUNT (AUTO) 309 K/uL (150-450); RED BLOOD CELL COUNT(AUTO) 6.04 MIL/uL (4.00-5.20); RED CELL DISTRIBUTION WIDTH 34.8 % (11.5-14.5)
[2022-11-12 23:25] LABS: ANION GAP 7 mmol/L (8-16); CALCIUM, TOTAL 9.7 mg/dL (8.8-10.5); CARBON DIOXIDE 29 mmol/L (22-29); CHLORIDE 99 mmol/L (98-107); CREATININE 0.82 mg/dL (0.60-1.30); GLOMERULAR FILTR. RATE CALC > 60 mL/min (>60); GLUCOSE,RANDOM 108 mg/dL (70-110); POTASSIUM 3.9 mmol/L (3.5-5.1); SODIUM SERUM 135 mmol/L (136-145); UREA NITROGEN, BLOOD 8 mg/dL (7-18)
[2022-11-12 23:38] LABS: B-TYPE NATRIURETIC PEPTIDE 14 pg/mL (0-100)
[2022-11-12 23:51] LABS: ALANINE AMINOTRANSFERASE 21 U/L (12-78); ALKALINE PHOSPHATASE 67 U/L (46-116); ASPARTATE AMINOTRANSFERASE 20 U/L (15-37); BILIRUBIN,TOTAL 0.2 mg/dL (0.1-1.0); CREATINE KINASE, TOTAL ONLY 119 U/L (26-192); HCG,QUANTITATIVE < 1 mIU/mL (0-6); LIPASE 75 U/L (73-393); TOTAL PROTEIN, SERUM 8.4 g/dL (6.4-8.2)
== END 2022-11-13 00:41 | disposition home or self-care (01) ==
LOC: EMS 20:11
DX: R07.2 Precordial pain (principal); F41.9 Anxiety disorder, unspecified; J45.909 Unspecified asthma, uncomplicated; F31.9 Bipolar disorder, unspecified; I10 Essential (primary) hypertension; F20.9 Schizophrenia, unspecified; Z98.890 Other specified postprocedural states; Z90.49 Acquired absence of other specified parts of digestive tract; Z98.51 Tubal ligation status; Z88.8 Allergy status to other drugs, medicaments and biological substances; Z91.010 Allergy to peanuts; Z91.040 Latex allergy status
CPT/HCPCS: 99285; 71045; 80053; 82550; 83690; 83880; 84484; 84702; 85025; 36415; 93005; Q0162

== ENCOUNTER 2022-11-17 19:57 | Emergency (ER) | payer MEDICAID | END 2022-11-17 21:00 | disposition left against medical advice (07) | LOC: EMS 19:58 | DX: Z53.21 Procedure and treatment not carried out due to patient leaving prior to being seen by health care provider (principal) ==

== ENCOUNTER 2023-04-29 22:14 | Emergency (ER) | payer MEDICAID ==
[~2023-04-29] VITALS: Ht 165.1 cm; Wt 101.4 kg
[2023-04-30] MEDS ORDERED: KETOROLAC TROMETHAMINE 30 MG/ML VIAL IM ONE (01:15)
[2023-04-30] MEDS ORDERED: LIDO1ADH63 TP (03:00)
[2023-04-30 03:30] VITALS: BP 119/67; PULSE 70; RESP 18; TEMP 98.3
== END 2023-04-30 03:30 | disposition home or self-care (01) ==
LOC: EMS 22:15
DX: M25.562 Pain in left knee (principal); D64.9 Anemia, unspecified; J45.909 Unspecified asthma, uncomplicated; F41.9 Anxiety disorder, unspecified; F31.9 Bipolar disorder, unspecified; K21.9 Gastro-esophageal reflux disease without esophagitis; I10 Essential (primary) hypertension; F20.9 Schizophrenia, unspecified; Z90.49 Acquired absence of other specified parts of digestive tract; Z98.51 Tubal ligation status; Z88.5 Allergy status to narcotic agent; Z88.8 Allergy status to other drugs, medicaments and biological substances; Z91.010 Allergy to peanuts
CPT/HCPCS: 99283; 73562; J1885

== ENCOUNTER 2023-05-31 08:13 | Emergency (ER) | payer MEDICAID ==
[~2023-05-31] VITALS: Ht 167.6 cm; Wt 100.0 kg
[~2023-05-31 08:13] MED LIST changes: +LIDO1ADH63 TP
[2023-05-31 08:23] VITALS: BP 126/76; PULSE 94; RESP 18; TEMP 98.4
[2023-06-01] MEDS ORDERED: CORTSOL AU (05:19)
[2023-06-01] MEDS ORDERED: AMOX250C4 PO (05:20)
== END 2023-05-31 09:31 | disposition home or self-care (01) ==
LOC: EMS 08:13
DX: H92.02 Otalgia, left ear (principal); L24.5 Irritant contact dermatitis due to other chemical products; D64.9 Anemia, unspecified; J45.909 Unspecified asthma, uncomplicated; F41.9 Anxiety disorder, unspecified; F31.9 Bipolar disorder, unspecified; F20.9 Schizophrenia, unspecified; I10 Essential (primary) hypertension; K21.9 Gastro-esophageal reflux disease without esophagitis; Z90.49 Acquired absence of other specified parts of digestive tract; Z98.51 Tubal ligation status; Z88.5 Allergy status to narcotic agent; Z91.010 Allergy to peanuts
CPT/HCPCS: 99281; Z7502

== ENCOUNTER 2023-06-01 04:36 | Emergency (ER) | payer MEDICAID ==
[~2023-06-01] VITALS: Ht 167.6 cm; Wt 100.0 kg
[2023-06-01 04:38] VITALS: BP 137/81; PULSE 88; RESP 16; TEMP 98.9
[2023-06-01] MEDS ORDERED: HYDROCODONE/ACETAMINOPHEN 5-325 MG TABLET PO ONE (05:15)
[2023-06-01] MEDS ORDERED: KETOROLAC TROMETHAMINE 30 MG/ML VIAL IM ONE (05:15)
[2023-06-01] MEDS ORDERED: CORTSOL AU (05:19)
[2023-06-01] MEDS ORDERED: AMOX250C4 PO (05:20)
== END 2023-06-01 05:29 | disposition home or self-care (01) ==
LOC: EMS 04:36
DX: H60.92 Unspecified otitis externa, left ear (principal); L30.9 Dermatitis, unspecified; D64.9 Anemia, unspecified; J45.909 Unspecified asthma, uncomplicated; F41.9 Anxiety disorder, unspecified; F31.9 Bipolar disorder, unspecified; F20.9 Schizophrenia, unspecified; I10 Essential (primary) hypertension; K21.9 Gastro-esophageal reflux disease without esophagitis; Z90.49 Acquired absence of other specified parts of digestive tract; Z98.51 Tubal ligation status; Z88.8 Allergy status to other drugs, medicaments and biological substances; Z91.010 Allergy to peanuts
CPT/HCPCS: 99283; 96372; J1885

== ENCOUNTER 2023-12-03 22:01 | Emergency (ER) | payer MEDICAID ==
[~2023-12-03] VITALS: Ht 165.1 cm; Wt 94.2 kg
[~2023-12-03 22:01] MED LIST changes: +AMOX250C4 PO; +CORTSOL AU
[2023-12-03 22:11] VITALS: BP 128/94; PULSE 96; RESP 18; TEMP 98.3
== END 2023-12-03 22:32 | disposition left against medical advice (07) ==
LOC: EMS 22:07
DX: J45.909 Unspecified asthma, uncomplicated (principal); Z53.21 Procedure and treatment not carried out due to patient leaving prior to being seen by health care provider
CPT/HCPCS: 99281; Z7502

== ENCOUNTER 2024-01-01 14:34 | Inpatient (IN) | payer MEDICAID ==
[~2024-01-01] VITALS: Ht 165.1 cm; Wt 216.3 kg
[2024-01-01] MEDS ORDERED: ROSU40TA70 PO (14:41)
[2024-01-01] MEDS ORDERED: ALBU90AE IH (14:41)
[2024-01-01] MEDS ORDERED: BENZ2TAB71 PO (14:41)
[2024-01-01] MEDS ORDERED: FAMO20TA8 PO (14:41)
[2024-01-01] MEDS ORDERED: HALO2 PO (14:41)
[2024-01-01] MEDS ORDERED: ATOR-2 PO (14:41)
[2024-01-01] MEDS ORDERED: BENZ1TAB84 PO (14:41)
[2024-01-01] MEDS ORDERED: POLY510P31 PO (14:41)
[2024-01-01] MEDS ORDERED: FLUO20CA36 PO (14:41)
[2024-01-01] MEDS ORDERED: EZET10TA57 PO (14:41)
[2024-01-01] MEDS ORDERED: ATEN-73 PO (14:41)
[2024-01-01] MEDS ORDERED: AMLO5TAB66 PO (14:41)
[2024-01-01] MEDS ORDERED: FLUO40CA PO (14:41)
[2024-01-01] MEDS ORDERED: DIVA-112 PO (14:41)
[2024-01-01 19:11] LABS: EOSINOPHILS % (AUTO) 1.9 % (1.0-6.0); HEMATOCRIT 45.8 % (36-46); HEMOGLOBIN 15.3 g/dL (12.0-16.0); LYMPHOCYTES # (AUTO) 2.9 K/uL (1.0-4.8); LYMPHOCYTES % (AUTO) 29.9 % (22.0-44.0); MEAN CORPUSCULAR HEMOGLOBIN 30.2 pg (26.0-34.0); MEAN CORPUSCULAR HGB CONC 33.4 G/dL (31.0-37.0); MEAN CORPUSCULAR VOLUME 91 fL (80-100); MONOCYTES # (AUTO) 0.8 K/uL (0.1-1.0); MONOCYTES % (AUTO) 7.9 % (2.0-9.0); NEUTROPHILS # (AUTO) 5.8 K/uL (1.8-7.7); NEUTROPHILS % (AUTO) 59.3 % (40.0-70.0); PLATELET COUNT (AUTO) 288 K/uL (150-450); RED BLOOD CELL COUNT(AUTO) 5.06 MIL/uL (4.00-5.20); WHITE BLOOD COUNT (AUTO) 9.7 K/uL (4.5-11.0)
[2024-01-01 19:12] LABS: PH,URINE DRUG SCREEN 6.5 (5.0-8.0)
[2024-01-01 19:19] LABS: ANION GAP 8 mmol/L (8-16); CALCIUM, TOTAL 9.2 mg/dL (8.8-10.5); CARBON DIOXIDE 27 mmol/L (22-29); CHLORIDE 101 mmol/L (98-107); CREATININE 0.74 mg/dL (0.60-1.30); GLOMERULAR FILTR. RATE CALC > 60 mL/min (>60); GLUCOSE,RANDOM 88 mg/dL (70-110); SODIUM SERUM 136 mmol/L (136-145); UREA NITROGEN, BLOOD 10 mg/dL (7-18)
[2024-01-01 19:25] LABS: ALCOHOL, URINE DRUG SCREEN NEGATIVE (NEGATIVE); AMPHET/METH SCREEN,URINE NEGATIVE (NEGATIVE); BARBITURATE SCREEN, URINE NEGATIVE (NEGATIVE); BENZODIAZEPINES SCREEN,URINE NEGATIVE (NEGATIVE); CANNABINOID SCREEN,URINE NEGATIVE (NEGATIVE); COCAINE SCREEN,URINE NEGATIVE (NEGATIVE); METHADONE SCREEN, URINE NEGATIVE (NEGATIVE); OPIATE SCREEN,URINE NEGATIVE (NEGATIVE); PHENCYCLIDINE SCREEN,URINE NEGATIVE (NEGATIVE)
[2024-01-01 19:26] LABS: ALANINE AMINOTRANSFERASE 43 U/L (12-78); ALBUMIN 3.7 g/dL (3.4-5.0); ALKALINE PHOSPHATASE 68 U/L (46-116); ASPARTATE AMINOTRANSFERASE 22 U/L (15-37); BILIRUBIN,TOTAL 0.3 mg/dL (0.1-1.0); TOTAL PROTEIN, SERUM 7.9 g/dL (6.4-8.2)
[2024-01-01 19:31] LABS: ALCOHOL, BLOOD (SERUM) < 3 mg/dL (0-10)
[2024-01-01 23:07] LABS: COVID AG,FIA SOURCE NASAL SWAB
[2024-01-01 23:20] LABS: APPEARANCE,URINE CLEAR (CLEAR); BILIRUBIN,URINE NEGATIVE (NEGATIVE); COLOR,URINE LIGHT YELLOW (YELLOW); GLUCOSE, URINE (UA) NEGATIVE (NEGATIVE); KETONES,URINE NEGATIVE (NEGATIVE); LEUKOCYTE ESTERASE ,URINE TRACE (NEGATIVE); NITRATE,URINE NEGATIVE (NEGATIVE); OCCULT BLOOD,URINE TRACE (NEGATIVE); PH,URINE 6.5 (5.0-8.0); PROTEIN,URINE NEGATIVE (NEGATIVE); SPECIFIC GRAVITIY, URINE 1.014 (1.003-1.030); UROBILINOGEN,URINE <=1.0 mg/dL (<=1.0)
[2024-01-01 23:30] LABS: SARS-COV2 (COVID) ANTIGEN,FIA Negative (Negative)
[2024-01-01 23:44] LABS: BACTERIA,URINE Few /HPF (None Seen); RBC,URINE None Seen /HPF (0-2); WBC,URINE 0-2 /HPF (0-5)
[2024-01-01 23:45] LABS: SQUAMOUS EPITHELIAL CELL,UR Few /LPF (None Seen)
[2024-01-02] MEDS: OLANZapine 5 MG RAPDIS TABLET PO PRN (01:18)
[2024-01-02] MEDS: ZOLPIDEM TARTRATE 10 MG TABLET PO PRN (01:18)
[2024-01-02] MEDS ORDERED: MAG HYDROX/ALUMINUM HYD/SIMETH ES 30 ML SUSPENSION UDCUP PO PRN (09:30)
[2024-01-02] MEDS ORDERED: TUBERCULIN, PURIFIED PROTEIN DERIVATIVE 5 TU/0.1 ML SYRINGE ID ONE (09:30)
[2024-01-02] MEDS ORDERED: MAGNESIUM HYDROXIDE SUSPENSION 30 ML UDCUP PO PRN (09:30)
[2024-01-02] MEDS ORDERED: HydrOXYzine PAMOATE 50 MG CAPSULE PO PRN (09:30)
[2024-01-02] MEDS ORDERED: GuaiFENesin/D-METHORPHAN [SUGAR-FREE] 200-20MG/10 ML SYRUP UDCUP PO PRN (09:30)
[2024-01-02] MEDS ORDERED: ACETAMINOPHEN 325 MG TABLET PO PRN (09:30)
[2024-01-02] MEDS ORDERED: LOPERAMIDE HCL 2 MG CAPSULE PO PRN (09:30)
[2024-01-02] MEDS ORDERED: PROMETHAZINE HCL 25 MG TABLET PO PRN (09:30)
[2024-01-02 11:20] VITALS: BP 132/64; PULSE 84; RESP 18; TEMP 97.3
[2024-01-02] MEDS ORDERED: HALO5TAB23 PO (14:30)
[2024-01-02] MEDS ORDERED: HALO5TAB2 PO (14:30)
[2024-01-02] MEDS ORDERED: INFLUENZA VIRUS VACCINE QVS 2023-24 (6MO+)/PF 60 MCG/0.5 ML SYRINGE IM. ONE (14:45)
[2024-01-02] MEDS ORDERED: PNEUMOCOCCAL VACCINE POLYVALENT 0.5 ML SYRINGE [PPSV23] IM. ONE (14:45)
[2024-01-02] MEDS ORDERED: HALOPERIDOL 5 MG TABLET PO PRN (16:45)
[2024-01-02] MEDS ORDERED: GABAPENTIN 300 MG CAPSULE PO PRN (16:45)
[2024-01-02] MEDS: THIAMINE 100 MG TABLET PO SCH (17:18)
[2024-01-02] MEDS: HALOPERIDOL DECANOATE 100 MG/ML VIAL IM ONE (17:57)
[2024-01-02] MEDS ORDERED: OLANZapine 5 MG RAPDIS TABLET PO SCH (21:00)
[2024-01-02 23:18] VITALS: BP 125/82; PULSE 95; RESP 18; TEMP 97.8
[2024-01-03] MEDS: MELATONIN 5 MG TABLET PO SCH (01:34)
[2024-01-03] MEDS: DIVALPROEX SODIUM 500 MG ER TABLET PO SCH (01:44)
[2024-01-03] MEDS: HALOPERIDOL 10 MG TABLET PO SCH ×2 (01:53→21:18)
[2024-01-03 08:18] VITALS: BP 145/88; PULSE 89; RESP 18; TEMP 97.9; O2SAT 98
[2024-01-03] MEDS: OMEGA-3/DHA/EPA/FISH OIL 1,000 MG CAPSULE PO SCH (08:25)
[2024-01-03] MEDS: MULTIVITAMINS WITH MINERALS, THERAPEUTIC TABLET PO SCH (08:25)
[2024-01-03] MEDS: FLUoxetine HCL 20 MG CAPSULE PO SCH (08:25)
[2024-01-03] MEDS: FOLIC ACID 1 MG TABLET PO SCH (08:25)
[2024-01-03 08:35] LABS: CHOL/HDL RATIO 3.3 (3.9-5.7); FREE T4 (FREE THYROXINE) 1.07 ng/dL (0.76-1.46); THYROID STIMULATING HORMONE 0.93 uIU/mL (0.36-3.74)
[2024-01-03 20:06] VITALS: BP 132/86; PULSE 90; RESP 20; TEMP 97.6; O2SAT 97
[2024-01-04 08:16] VITALS: BP 123/90; PULSE 94; RESP 18; TEMP 97.9; O2SAT 97
[2024-01-04] MEDS: FLUoxetine HCL 20 MG CAPSULE PO SCH (09:28)
[2024-01-04] MEDS ORDERED: OMEG-135 PO (16:10)
[2024-01-04] MEDS ORDERED: HALO100V36 IM (16:10)
[2024-01-04] MEDS ORDERED: HALO10TA21 PO (16:10)
[2024-01-04] MEDS ORDERED: FLUO20CA36 PO (16:10)
[2024-01-04] MEDS ORDERED: MELA5TAB40 PO (16:10)
[2024-01-04] MEDS ORDERED: DIVA500T69 PO (16:10)
[2024-01-04 20:00] VITALS: BP 122/61; PULSE 93; RESP 18; TEMP 97.6; O2SAT 97
[2024-01-05 08:12] VITALS: BP 138/72; PULSE 93; RESP 19; TEMP 97.5; O2SAT 96
[2024-01-16] MEDS ORDERED: HALOPERIDOL DECANOATE 100 MG/ML VIAL IM SCH (09:00)
== END 2024-01-05 15:00 | disposition home or self-care (01) | DRG 750 ==
LOC: EMS 14:52 → B2S 01-02 07:21
PROVIDERS: ADMIT Psychiatry & Neurology Psychiatry; ATTEND Psychiatry & Neurology Psychiatry
PROC: GZHZZZZ Group Psychotherapy (ICD-10-PCS; principal; 2024-01-02)
PROC: GZ51ZZZ Individual Psychotherapy, Behavioral (ICD-10-PCS; 2024-01-02)
DX: F25.0 Schizoaffective disorder, bipolar type (principal); Z91.148 Patient's other noncompliance with medication regimen for other reason; F41.9 Anxiety disorder, unspecified; I10 Essential (primary) hypertension; Z20.822 Contact with and (suspected) exposure to COVID-19; K21.9 Gastro-esophageal reflux disease without esophagitis; J45.909 Unspecified asthma, uncomplicated; Z91.010 Allergy to peanuts; Z88.8 Allergy status to other drugs, medicaments and biological substances; Z79.899 Other long term (current) drug therapy; Z90.49 Acquired absence of other specified parts of digestive tract; Z98.51 Tubal ligation status
CPT/HCPCS: 80053; 80061; 80164; 80173; 80307; 81001; 83036; 84439; 84443; 84703; 85025; 86592; 90686; 99285; G0480; J1631; Q9967

== ENCOUNTER 2024-04-01 23:03 | Emergency (ER) | payer MEDICAID ==
[~2024-04-01] VITALS: Ht 170.2 cm; Wt 104.0 kg
[~2024-04-01 23:03] MED LIST changes: -ALBU8.5H8 IH; -AMLO-258 PO; -AMOX250C4 PO; -APIX5TAB PO; -ATOR40TA28 PO; -CORTSOL AU; +DIVA500T69 PO; -FAMO20 PO; +FLUO-418 PO; +HALO100V36 IM; +HALO10TA21 PO; -LIDO1ADH63 TP; -LOSA-381 PO; +MELA5TAB40 PO; +OMEG-135 PO; -QUET25TA PO
[2024-04-01 23:39] VITALS: TEMP 98.4
[2024-04-02] MEDS: IBUPROFEN 600 MG TABLET PO ONE (00:03)
[2024-04-02] MEDS: HYDROmorphone HCL 2 MG/ML SYRINGE IVP ONE (01:28)
[2024-04-02] MEDS: POVIDONE-IODINE 10% 15 ML SOLUTION UD TP ONE (01:28)
[2024-04-02] MEDS: LIDOCAINE 1% 20 ML VIAL IARTIC ONE (01:28)
[2024-04-02] MEDS: ONDANSETRON HCL 4 MG/2 ML VIAL IVP ONE (01:29)
[2024-04-02 01:35] VITALS: BP 154/73; PULSE 86; RESP 16
[2024-04-02] MEDS ORDERED: IBUP-1492 PO (03:13)
[2024-04-02] MEDS ORDERED: TRAM50TA5 PO (03:13)
== END 2024-04-02 03:46 | disposition home or self-care (01) ==
LOC: EMS 23:03
DX: S53.125A Posterior dislocation of left ulnohumeral joint, initial encounter (principal); J45.909 Unspecified asthma, uncomplicated; K21.9 Gastro-esophageal reflux disease without esophagitis; I10 Essential (primary) hypertension; Z91.041 Radiographic dye allergy status; Z91.010 Allergy to peanuts; Z88.8 Allergy status to other drugs, medicaments and biological substances; W01.0XXA Fall on same level from slipping, tripping and stumbling without subsequent striking against object, initial encounter; Y93.89 Activity, other specified; Y92.89 Other specified places as the place of occurrence of the external cause; Y99.8 Other external cause status
CPT/HCPCS: 99291; 25600; 73030; 73080; 96374; 96375; 73070; J1170; J3490; J2405

== ENCOUNTER 2024-04-10 17:58 | Emergency (ER) | payer MEDICAID ==
[~2024-04-10] VITALS: Ht 165.1 cm; Wt 100.0 kg
[~2024-04-10 17:58] MED LIST changes: +IBUP-1492 PO; +TRAM50TA5 PO
[2024-04-10 18:02] VITALS: BP 124/79; PULSE 98; RESP 16; TEMP 98.6
== END 2024-04-10 20:58 | disposition home or self-care (01) ==
LOC: EMS 18:06
DX: S90.31XA Contusion of right foot, initial encounter (principal); S80.211A Abrasion, right knee, initial encounter; I10 Essential (primary) hypertension; D64.9 Anemia, unspecified; J45.909 Unspecified asthma, uncomplicated; F41.9 Anxiety disorder, unspecified; F31.9 Bipolar disorder, unspecified; K21.9 Gastro-esophageal reflux disease without esophagitis; F20.9 Schizophrenia, unspecified; Z90.49 Acquired absence of other specified parts of digestive tract; Z98.51 Tubal ligation status; Z91.010 Allergy to peanuts; W19.XXXA Unspecified fall, initial encounter; Y93.89 Activity, other specified; Y92.89 Other specified places as the place of occurrence of the external cause; Y99.8 Other external cause status
CPT/HCPCS: 93971; 99284; 73590-TC; 73630-TC; Z7502

== ENCOUNTER 2024-04-16 10:17 | Emergency (ER) | payer MEDICAID ==
[~2024-04-16] VITALS: Ht 165.1 cm; Wt 104.5 kg
[2024-04-16] MEDS ORDERED: 0.9% SODIUM CHLORIDE 10 ML VIAL IVP ONE (12:00)
[2024-04-16] MEDS ORDERED: LIDOCAINE/PF 2% 5 ML VIAL IM ONE (12:00)
[2024-04-16] MEDS ORDERED: PROPOFOL 1% ISO-OSM 1000 MG/100 ML BOTTLE IV ONE (12:00)
[2024-04-16 15:43] VITALS: O2SAT 100
[2024-04-16 16:29] VITALS: TEMP 98
[2024-04-16 16:30] LABS: BASOPHILS % (AUTO) 0.8 % (0.0-2.0); EOSINOPHILS % (AUTO) 1.1 % (1.0-6.0); HEMATOCRIT 42.9 % (36-46); LYMPHOCYTES # (AUTO) 1.7 K/uL (1.0-4.8); LYMPHOCYTES % (AUTO) 22.3 % (22.0-44.0); MEAN CORPUSCULAR HGB CONC 32.6 G/dL (31.0-37.0); MEAN CORPUSCULAR VOLUME 92 fL (80-100); MONOCYTES # (AUTO) 0.8 K/uL (0.1-1.0); MONOCYTES % (AUTO) 10.3 % (2.0-9.0); NEUTROPHILS # (AUTO) 4.9 K/uL (1.8-7.7); NEUTROPHILS % (AUTO) 65.5 % (40.0-70.0); PLATELET COUNT (AUTO) 352 K/uL (150-450); RED BLOOD CELL COUNT(AUTO) 4.67 MIL/uL (4.00-5.20); RED CELL DISTRIBUTION WIDTH 14.7 % (11.5-14.5); WHITE BLOOD COUNT (AUTO) 7.5 K/uL (4.5-11.0)
[2024-04-16 16:32] LABS: ANION GAP 6 mmol/L (8-16); CARBON DIOXIDE 32 mmol/L (22-29); CHLORIDE 102 mmol/L (98-107); CREATININE 0.64 mg/dL (0.60-1.30); GLUCOSE,RANDOM 123 mg/dL (70-110); POTASSIUM 4.2 mmol/L (3.5-5.1); SODIUM SERUM 140 mmol/L (136-145); UREA NITROGEN, BLOOD 10 mg/dL (7-18)
[2024-04-16 16:33] LABS: CALCIUM, TOTAL 9.3 mg/dL (8.8-10.5); GLOMERULAR FILTR. RATE CALC > 60 mL/min (>60)
[2024-04-16 17:01] LABS: HCG,QUANTITATIVE < 1 mIU/mL (0-6)
[2024-04-16 18:26] VITALS: BP 124/86; PULSE 75; RESP 14; O2SAT 98
== END 2024-04-16 19:05 | disposition home or self-care (01) ==
LOC: EMS 10:17
DX: S53.125A Posterior dislocation of left ulnohumeral joint, initial encounter (principal); J45.909 Unspecified asthma, uncomplicated; K21.9 Gastro-esophageal reflux disease without esophagitis; I10 Essential (primary) hypertension; Z88.8 Allergy status to other drugs, medicaments and biological substances; Z91.041 Radiographic dye allergy status; Z79.899 Other long term (current) drug therapy; W01.0XXA Fall on same level from slipping, tripping and stumbling without subsequent striking against object, initial encounter; Y93.89 Activity, other specified; Y92.89 Other specified places as the place of occurrence of the external cause; Y99.8 Other external cause status
CPT/HCPCS: 80048; 84702; 85025; 36415; 73030; 73070; 73080; 73200; 99285; 24600; 93005; 99152; 99153; J3490; J2704; X7700; 24640; 99151

== ENCOUNTER 2024-04-22 10:58 | Emergency (ER) | payer MEDICAID ==
[~2024-04-22] VITALS: Ht 165.1 cm; Wt 103.0 kg
[2024-04-22 11:07] VITALS: BP 136/78; PULSE 82; RESP 16; TEMP 98.2
== END 2024-04-22 12:26 | disposition home or self-care (01) ==
LOC: EMS 10:59
DX: S53.105A Unspecified dislocation of left ulnohumeral joint, initial encounter (principal); F41.9 Anxiety disorder, unspecified; J45.909 Unspecified asthma, uncomplicated; F31.9 Bipolar disorder, unspecified; I10 Essential (primary) hypertension; Z90.49 Acquired absence of other specified parts of digestive tract; Z98.51 Tubal ligation status; Z98.890 Other specified postprocedural states; Z91.040 Latex allergy status; Z91.018 Allergy to other foods; Z88.8 Allergy status to other drugs, medicaments and biological substances; X58.XXXA Exposure to other specified factors, initial encounter; Y93.89 Activity, other specified; Y92.89 Other specified places as the place of occurrence of the external cause; Y99.8 Other external cause status
CPT/HCPCS: 99281; Z7502

== ENCOUNTER 2024-06-28 17:27 | Emergency (ER) | payer MEDICAID ==
[~2024-06-28] VITALS: Ht 165.1 cm; Wt 98.6 kg
[2024-06-28 17:35] VITALS: BP 115/63; PULSE 63; RESP 16; TEMP 98.9; O2SAT 97
[2024-06-28] MEDS ORDERED: ATEN-73 PO (17:43)
[2024-06-28] MEDS ORDERED: DIVA-112 PO (17:43)
[2024-06-28] MEDS ORDERED: LURA20TA2 PO (17:43)
[2024-06-28] MEDS ORDERED: OXYB5TAB20 PO (17:43)
[2024-06-28] MEDS ORDERED: LOSA-381 PO (17:43)
[2024-06-28] MEDS ORDERED: EZET10TA57 PO (17:43)
[2024-06-28 18:30] LABS: BASOPHILS % (AUTO) 0.6 % (0.0-2.0); EOSINOPHILS % (AUTO) 0.9 % (1.0-6.0); HEMATOCRIT 46.1 % (36-46); HEMOGLOBIN 15.3 g/dL (12.0-16.0); LYMPHOCYTES # (AUTO) 2.4 K/uL (1.0-4.8); LYMPHOCYTES % (AUTO) 31.8 % (22.0-44.0); MEAN CORPUSCULAR HEMOGLOBIN 29.9 pg (26.0-34.0); MEAN CORPUSCULAR HGB CONC 33.1 G/dL (31.0-37.0); MEAN CORPUSCULAR VOLUME 90 fL (80-100); MONOCYTES # (AUTO) 0.8 K/uL (0.1-1.0); MONOCYTES % (AUTO) 10.9 % (2.0-9.0); NEUTROPHILS # (AUTO) 4.2 K/uL (1.8-7.7); NEUTROPHILS % (AUTO) 55.8 % (40.0-70.0); PLATELET COUNT (AUTO) 271 K/uL (150-450); RED BLOOD CELL COUNT(AUTO) 5.12 MIL/uL (4.00-5.20); RED CELL DISTRIBUTION WIDTH 13.3 % (11.5-14.5); WHITE BLOOD COUNT (AUTO) 7.5 K/uL (4.5-11.0)
[2024-06-28 18:34] LABS: ANION GAP 11 mmol/L (8-16); CALCIUM, TOTAL 8.8 mg/dL (8.8-10.5); CARBON DIOXIDE 27 mmol/L (22-29); CHLORIDE 101 mmol/L (98-107); CREATININE 0.72 mg/dL (0.60-1.30); GLOMERULAR FILTR. RATE CALC > 60 mL/min (>60); GLUCOSE,RANDOM 79 mg/dL (70-110); POTASSIUM 4.2 mmol/L (3.5-5.1); SODIUM SERUM 139 mmol/L (136-145); UREA NITROGEN, BLOOD 8 mg/dL (7-18)
[2024-06-28 18:43] LABS: TROPONIN I-HIGH SENSITIVITY 21 ng/L (<51)
== END 2024-06-28 19:06 | disposition home or self-care (01) ==
LOC: EMS 17:36
DX: R53.1 Weakness (principal); F41.9 Anxiety disorder, unspecified; J45.909 Unspecified asthma, uncomplicated; F31.9 Bipolar disorder, unspecified; I10 Essential (primary) hypertension; F20.9 Schizophrenia, unspecified; Z90.49 Acquired absence of other specified parts of digestive tract; Z98.51 Tubal ligation status; Z98.890 Other specified postprocedural states; Z91.040 Latex allergy status; Z91.010 Allergy to peanuts; Z88.8 Allergy status to other drugs, medicaments and biological substances
CPT/HCPCS: 80048; 84484; 85025; 93005; 99284

== ENCOUNTER 2024-10-05 15:45 | Emergency (ER) | payer MEDICAID ==
[~2024-10-05] VITALS: Ht 165.1 cm; Wt 100.0 kg
[~2024-10-05 15:45] MED LIST changes: +ATEN-73 PO; +DIVA-112 PO; -DIVA500T69 PO; +EZET10TA57 PO; -FLUO-418 PO; -HALO10TA21 PO; -IBUP-1492 PO; +LOSA-381 PO; +LURA20TA2 PO; -MELA5TAB40 PO; -OMEG-135 PO; +OXYB5TAB20 PO; -TRAM50TA5 PO
[2024-10-05 15:49] VITALS: TEMP 98.2
[2024-10-05] MEDS ORDERED: HALO100A IM (15:51)
[2024-10-05] MEDS ORDERED: FAMO20TA8 PO (15:51)
[2024-10-05] MEDS ORDERED: DIVA500T2 PO (15:51)
[2024-10-05] MEDS ORDERED: ROSU20TA98 PO (15:51)
[2024-10-05 19:37] VITALS: BP 131/59; PULSE 67; RESP 18; O2SAT 96
== END 2024-10-05 22:08 | disposition home or self-care (01) ==
LOC: EMS 15:45
DX: I10 Essential (primary) hypertension (principal); F31.9 Bipolar disorder, unspecified; F41.9 Anxiety disorder, unspecified; J45.909 Unspecified asthma, uncomplicated; F20.9 Schizophrenia, unspecified; K21.9 Gastro-esophageal reflux disease without esophagitis; Z86.718 Personal history of other venous thrombosis and embolism; Z88.8 Allergy status to other drugs, medicaments and biological substances; Z90.49 Acquired absence of other specified parts of digestive tract; Z91.041 Radiographic dye allergy status; Z98.51 Tubal ligation status
CPT/HCPCS: 99281; 99283

== ENCOUNTER 2024-10-17 22:58 | Emergency (ER) | payer MEDICAID ==
[~2024-10-17] VITALS: Ht 165.1 cm; Wt 100.0 kg
[~2024-10-17 22:58] MED LIST changes: -DIVA-112 PO; +DIVA500T2 PO; +FAMO20TA8 PO; +HALO100A IM; -HALO100V36 IM; -LOSA-381 PO; +ROSU20TA98 PO
[2024-10-17 23:16] VITALS: TEMP 97.9
[2024-10-17 23:54] VITALS: BP 120/75; PULSE 62; RESP 18; O2SAT 99
[2024-10-18 00:38] LABS: BASOPHILS % (AUTO) 1.2 % (0.0-2.0); EOSINOPHILS % (AUTO) 0.8 % (1.0-6.0); HEMATOCRIT 41.2 % (36-46); HEMOGLOBIN 13.5 g/dL (12.0-16.0); LYMPHOCYTES # (AUTO) 3.6 K/uL (1.0-4.8); LYMPHOCYTES % (AUTO) 36.4 % (22.0-44.0); MEAN CORPUSCULAR HEMOGLOBIN 26.2 pg (26.0-34.0); MEAN CORPUSCULAR HGB CONC 32.9 G/dL (31.0-37.0); MEAN CORPUSCULAR VOLUME 80 fL (80-100); MONOCYTES # (AUTO) 0.9 K/uL (0.1-1.0); MONOCYTES % (AUTO) 8.8 % (2.0-9.0); NEUTROPHILS # (AUTO) 5.2 K/uL (1.8-7.7); NEUTROPHILS % (AUTO) 52.8 % (40.0-70.0); PLATELET COUNT (AUTO) 330 K/uL (150-450); RED BLOOD CELL COUNT(AUTO) 5.17 MIL/uL (4.00-5.20); RED CELL DISTRIBUTION WIDTH 15.4 % (11.5-14.5); WHITE BLOOD COUNT (AUTO) 9.9 K/uL (4.5-11.0)
[2024-10-18 00:46] LABS: ANION GAP 10 mmol/L (8-16); CALCIUM, TOTAL 8.9 mg/dL (8.8-10.5); CARBON DIOXIDE 25 mmol/L (22-29); CHLORIDE 98 mmol/L (98-107); CREATININE 0.84 mg/dL (0.60-1.30); GLOMERULAR FILTR. RATE CALC > 60 mL/min (>60); GLUCOSE,RANDOM 114 mg/dL (70-110); POTASSIUM 4.1 mmol/L (3.5-5.1); SODIUM SERUM 133 mmol/L (136-145); UREA NITROGEN, BLOOD 9 mg/dL (7-18)
[2024-10-18 00:52] LABS: CREATINE KINASE, TOTAL ONLY 63 U/L (26-192)
[2024-10-18 00:54] LABS: TROPONIN I-HIGH SENSITIVITY 22 ng/L (<51)
[2024-10-18 00:57] LABS: B-TYPE NATRIURETIC PEPTIDE 27 pg/mL (0-100)
== END 2024-10-18 02:06 | disposition home or self-care (01) ==
LOC: EMS 22:58
DX: R07.89 Other chest pain (principal); J45.909 Unspecified asthma, uncomplicated; I10 Essential (primary) hypertension; K21.9 Gastro-esophageal reflux disease without esophagitis; F20.9 Schizophrenia, unspecified; Z91.010 Allergy to peanuts; Z88.8 Allergy status to other drugs, medicaments and biological substances; Z86.718 Personal history of other venous thrombosis and embolism; Z90.49 Acquired absence of other specified parts of digestive tract; Z91.041 Radiographic dye allergy status
CPT/HCPCS: 71045; 80048; 82550; 83880; 84484; 85025; 85379; 93005; 99285; 36415-L1; 36415-TC

== ENCOUNTER 2024-10-27 18:06 | Emergency (ER) | payer MEDICAID ==
[~2024-10-27] VITALS: Ht 165.1 cm; Wt 100.0 kg
[2024-10-27 18:17] VITALS: TEMP 97.6
[2024-10-27 20:46] LABS: BASOPHILS % (AUTO) 0.6 % (0.0-2.0); EOSINOPHILS % (AUTO) 1.2 % (1.0-6.0); HEMATOCRIT 36.7 % (36-46); LYMPHOCYTES # (AUTO) 3.2 K/uL (1.0-4.8); LYMPHOCYTES % (AUTO) 28.9 % (22.0-44.0); MEAN CORPUSCULAR HEMOGLOBIN 25.9 pg (26.0-34.0); MEAN CORPUSCULAR HGB CONC 32.8 G/dL (31.0-37.0); MEAN CORPUSCULAR VOLUME 79 fL (80-100); MONOCYTES # (AUTO) 1.2 K/uL (0.1-1.0); NEUTROPHILS # (AUTO) 6.4 K/uL (1.8-7.7); NEUTROPHILS % (AUTO) 58.3 % (40.0-70.0); PLATELET COUNT (AUTO) 310 K/uL (150-450); RED BLOOD CELL COUNT(AUTO) 4.64 MIL/uL (4.00-5.20); RED CELL DISTRIBUTION WIDTH 15.7 % (11.5-14.5); WHITE BLOOD COUNT (AUTO) 10.9 K/uL (4.5-11.0)
[2024-10-27 20:56] LABS: ANION GAP 7 mmol/L (8-16); CALCIUM, TOTAL 8.4 mg/dL (8.8-10.5); CARBON DIOXIDE 29 mmol/L (22-29); CHLORIDE 99 mmol/L (98-107); CREATININE 0.79 mg/dL (0.60-1.30); GLOMERULAR FILTR. RATE CALC > 60 mL/min (>60); GLUCOSE,RANDOM 98 mg/dL (70-110); POTASSIUM 4.2 mmol/L (3.5-5.1); SODIUM SERUM 135 mmol/L (136-145); UREA NITROGEN, BLOOD 8 mg/dL (7-18)
[2024-10-27 21:06] LABS: TROPONIN I-HIGH SENSITIVITY 18 ng/L (<51)
[2024-10-27 22:00] VITALS: BP 141/73; PULSE 74; RESP 18; O2SAT 97
[2024-10-27 22:46] LABS: APPEARANCE,URINE CLEAR (CLEAR); BILIRUBIN,URINE NEGATIVE (NEGATIVE); COLOR,URINE COLORLESS (YELLOW); GLUCOSE, URINE (UA) 70-100 mg/dL (NEGATIVE); KETONES,URINE NEGATIVE (NEGATIVE); LEUKOCYTE ESTERASE ,URINE NEGATIVE (NEGATIVE); NITRATE,URINE NEGATIVE (NEGATIVE); OCCULT BLOOD,URINE NEGATIVE (NEGATIVE); PROTEIN,URINE NEGATIVE (NEGATIVE); SPECIFIC GRAVITIY, URINE 1.003 (1.003-1.030); UROBILINOGEN,URINE <=1.0 mg/dL (<=1.0)
[2024-10-27 22:58] LABS: BACTERIA,URINE Rare /HPF (None Seen); RBC,URINE 0-2 /HPF (0-2); SQUAMOUS EPITHELIAL CELL,UR Few /LPF (None Seen); WBC,URINE 0-2 /HPF (0-5)
== END 2024-10-27 22:45 | disposition home or self-care (01) ==
LOC: EMS 18:06
DX: R07.89 Other chest pain (principal); I10 Essential (primary) hypertension; J45.909 Unspecified asthma, uncomplicated; F20.9 Schizophrenia, unspecified; F31.9 Bipolar disorder, unspecified; F41.9 Anxiety disorder, unspecified; K21.9 Gastro-esophageal reflux disease without esophagitis; Z86.718 Personal history of other venous thrombosis and embolism; Z90.49 Acquired absence of other specified parts of digestive tract; Z98.51 Tubal ligation status; Z88.8 Allergy status to other drugs, medicaments and biological substances; Z91.010 Allergy to peanuts; Z91.041 Radiographic dye allergy status
CPT/HCPCS: 71045; 80048; 81001; 84484; 84703; 85025; 93005; 99285; 36415-L1; 36415-TC

== ENCOUNTER 2024-11-01 16:20 | Emergency (ER) | payer MEDICAID ==
[~2024-11-01] VITALS: Ht 165.1 cm; Wt 100.0 kg
[~2024-11-01 16:20] MED LIST changes: -EZET10TA57 PO
[2024-11-01 16:51] VITALS: TEMP 98.6
[2024-11-01] MEDS ORDERED: DIVA-112 PO (16:57)
[2024-11-01] MEDS ORDERED: FAMO20 PO (16:57)
[2024-11-01 16:59] LABS: COVID AG,FIA SOURCE NPH
[2024-11-01 17:02] LABS: APPEARANCE,URINE CLEAR (CLEAR); BILIRUBIN,URINE NEGATIVE (NEGATIVE); COLOR,URINE COLORLESS (YELLOW); GLUCOSE, URINE (UA) >=1000 mg/dL (NEGATIVE); KETONES,URINE NEGATIVE (NEGATIVE); LEUKOCYTE ESTERASE ,URINE NEGATIVE (NEGATIVE); NITRATE,URINE NEGATIVE (NEGATIVE); OCCULT BLOOD,URINE NEGATIVE (NEGATIVE); PROTEIN,URINE NEGATIVE (NEGATIVE); SPECIFIC GRAVITIY, URINE 1.005 (1.003-1.030); UROBILINOGEN,URINE <=1.0 mg/dL (<=1.0)
[2024-11-01 17:10] LABS: ALCOHOL, URINE DRUG SCREEN NEGATIVE (NEGATIVE); AMPHET/METH SCREEN,URINE NEGATIVE (NEGATIVE); BARBITURATE SCREEN, URINE NEGATIVE (NEGATIVE); BENZODIAZEPINES SCREEN,URINE NEGATIVE (NEGATIVE); CANNABINOID SCREEN,URINE NEGATIVE (NEGATIVE); COCAINE SCREEN,URINE NEGATIVE (NEGATIVE); METHADONE SCREEN, URINE NEGATIVE (NEGATIVE); OPIATE SCREEN,URINE NEGATIVE (NEGATIVE); PHENCYCLIDINE SCREEN,URINE NEGATIVE (NEGATIVE)
[2024-11-01 17:17] LABS: SARS-COV2 (COVID) ANTIGEN,FIA Negative (Negative)
[2024-11-01 17:32] LABS: BACTERIA,URINE Few /HPF (None Seen); RBC,URINE 0-2 /HPF (0-2); SQUAMOUS EPITHELIAL CELL,UR Rare /LPF (None Seen); WBC,URINE 0-2 /HPF (0-5)
[2024-11-01] MEDS ORDERED: EZET10TA57 PO (17:40)
[2024-11-01] MEDS ORDERED: AMLO5TAB66 PO (17:40)
[2024-11-01 17:55] VITALS: BP 127/76; PULSE 68; RESP 18; O2SAT 99
[2024-11-01] MEDS: HydrOXYzine HCL 25 MG TABLET PO ONE (18:04)
== END 2024-11-01 18:09 | disposition home or self-care (01) ==
LOC: EMS 16:20
DX: F25.0 Schizoaffective disorder, bipolar type (principal); F41.9 Anxiety disorder, unspecified; I10 Essential (primary) hypertension; J45.909 Unspecified asthma, uncomplicated; K21.9 Gastro-esophageal reflux disease without esophagitis; Z86.718 Personal history of other venous thrombosis and embolism; Z90.49 Acquired absence of other specified parts of digestive tract; Z98.51 Tubal ligation status; Z91.041 Radiographic dye allergy status; Z88.8 Allergy status to other drugs, medicaments and biological substances; Z20.822 Contact with and (suspected) exposure to COVID-19
CPT/HCPCS: 80307; 81001; 99284

== ENCOUNTER 2024-11-05 11:31 | Emergency (ER) | payer MEDICAID ==
[~2024-11-05] VITALS: Ht 167.6 cm; Wt 100.0 kg
[~2024-11-05 11:31] MED LIST changes: +AMLO5TAB66 PO; +DIVA-112 PO; -DIVA500T2 PO; +EZET10TA57 PO; +FAMO20 PO; -FAMO20TA8 PO; -HALO100A IM
[2024-11-05 11:40] VITALS: TEMP 98
[2024-11-05 15:30] VITALS: BP 127/74; PULSE 74; RESP 18; O2SAT 96
[2024-11-06] MEDS ORDERED: ONDA-243 PO (16:26)
[2024-11-06] MEDS ORDERED: ROSU40TA88 PO (16:26)
[2024-11-06] MEDS ORDERED: OMEP40CA21 PO (16:26)
[2024-11-06] MEDS ORDERED: IBUP-2070 PO (16:26)
[2024-11-06] MEDS ORDERED: LURA60TA4 PO (16:26)
[2024-11-06] MEDS ORDERED: KETO15CR2 TP (16:26)
[2024-11-06] MEDS ORDERED: SUCR1TAB2 PO (16:26)
== END 2024-11-05 16:28 | disposition home or self-care (01) ==
LOC: EMS 11:31
DX: K21.9 Gastro-esophageal reflux disease without esophagitis (principal); R07.89 Other chest pain; R73.9 Hyperglycemia, unspecified; F41.9 Anxiety disorder, unspecified; F31.9 Bipolar disorder, unspecified; J45.909 Unspecified asthma, uncomplicated; I10 Essential (primary) hypertension; F20.9 Schizophrenia, unspecified; Z86.718 Personal history of other venous thrombosis and embolism; Z88.8 Allergy status to other drugs, medicaments and biological substances; Z90.49 Acquired absence of other specified parts of digestive tract; Z91.041 Radiographic dye allergy status; Z98.51 Tubal ligation status
CPT/HCPCS: 82962; 93005; 99283

== ENCOUNTER 2024-11-06 16:12 | Emergency (ER) | payer MEDICAID ==
[~2024-11-06] VITALS: Ht 165.1 cm; Wt 100.0 kg
[2024-11-06 16:23] VITALS: BP 124/59; PULSE 74; RESP 18; TEMP 97.9; O2SAT 98
[2024-11-06] MEDS ORDERED: SUCR1TAB2 PO (16:26)
[2024-11-06] MEDS ORDERED: OMEP40CA21 PO (16:26)
[2024-11-06] MEDS ORDERED: ROSU40TA88 PO (16:26)
[2024-11-06] MEDS ORDERED: ONDA-243 PO (16:26)
[2024-11-06] MEDS ORDERED: IBUP-2070 PO (16:26)
[2024-11-06] MEDS ORDERED: KETO15CR2 TP (16:26)
[2024-11-06] MEDS ORDERED: LURA60TA4 PO (16:26)
[2024-11-06 18:02] LABS: BASOPHILS % (AUTO) 0.7 % (0.0-2.0); EOSINOPHILS % (AUTO) 0.7 % (1.0-6.0); LYMPHOCYTES # (AUTO) 2.9 K/uL (1.0-4.8); LYMPHOCYTES % (AUTO) 33.4 % (22.0-44.0); MEAN CORPUSCULAR HEMOGLOBIN 25.1 pg (26.0-34.0); MEAN CORPUSCULAR HGB CONC 31.6 G/dL (31.0-37.0); MEAN CORPUSCULAR VOLUME 79 fL (80-100); MONOCYTES % (AUTO) 10.9 % (2.0-9.0); NEUTROPHILS # (AUTO) 4.8 K/uL (1.8-7.7); NEUTROPHILS % (AUTO) 54.3 % (40.0-70.0); PLATELET COUNT (AUTO) 277 K/uL (150-450); RED BLOOD CELL COUNT(AUTO) 4.78 MIL/uL (4.00-5.20); WHITE BLOOD COUNT (AUTO) 8.8 K/uL (4.5-11.0)
[2024-11-06 18:11] LABS: ANION GAP 6 mmol/L (8-16); CALCIUM, TOTAL 8.6 mg/dL (8.8-10.5); CARBON DIOXIDE 29 mmol/L (22-29); CHLORIDE 97 mmol/L (98-107); GLOMERULAR FILTR. RATE CALC > 60 mL/min (>60); GLUCOSE,RANDOM 256 mg/dL (70-110); POTASSIUM 3.8 mmol/L (3.5-5.1); SODIUM SERUM 132 mmol/L (136-145); UREA NITROGEN, BLOOD 5 mg/dL (7-18)
[2024-11-06 18:17] LABS: ALANINE AMINOTRANSFERASE 22 U/L (12-78); ALKALINE PHOSPHATASE 65 U/L (46-116); ASPARTATE AMINOTRANSFERASE 14 U/L (15-37); BILIRUBIN,TOTAL 0.2 mg/dL (0.1-1.0); CREATINE KINASE, TOTAL ONLY 64 U/L (26-192); TOTAL PROTEIN, SERUM 6.7 g/dL (6.4-8.2)
[2024-11-06 18:18] LABS: TROPONIN I-HIGH SENSITIVITY 17 ng/L (<51)
[2024-11-06 18:39] LABS: B-TYPE NATRIURETIC PEPTIDE 62 pg/mL (0-100)
== END 2024-11-06 19:19 | disposition home or self-care (01) ==
LOC: EMS 16:12
DX: R07.89 Other chest pain (principal); F41.9 Anxiety disorder, unspecified; J45.909 Unspecified asthma, uncomplicated; F31.9 Bipolar disorder, unspecified; F20.9 Schizophrenia, unspecified; I10 Essential (primary) hypertension; K21.9 Gastro-esophageal reflux disease without esophagitis; Z79.899 Other long term (current) drug therapy; Z98.51 Tubal ligation status; Z86.718 Personal history of other venous thrombosis and embolism; Z88.8 Allergy status to other drugs, medicaments and biological substances; Z90.49 Acquired absence of other specified parts of digestive tract; Z91.041 Radiographic dye allergy status
CPT/HCPCS: 71045; 80048; 80076; 82550; 83880; 84484; 84703; 85025; 93005; 99285; 36415-L1; 36415-TC

== ENCOUNTER 2024-11-11 20:07 | Emergency (ER) | payer MEDICAID ==
[~2024-11-11] VITALS: Ht 165.1 cm; Wt 100.0 kg
[~2024-11-11 20:07] MED LIST changes: +IBUP-2070 PO; +KETO15CR2 TP; -LURA20TA2 PO; +LURA60TA4 PO; +OMEP40CA21 PO; +ONDA-243 PO; +ROSU40TA88 PO; +SUCR1TAB2 PO
[2024-11-11 20:30] VITALS: BP 134/72; PULSE 73; RESP 18; TEMP 98.3; O2SAT 95
[2024-11-11] MEDS ORDERED: IBUP-1554 PO (23:12)
[2024-11-11] MEDS ORDERED: ACET-66 PO (23:12)
[2024-11-11] MEDS ORDERED: IBUPROFEN 600 MG TABLET PO ONE (23:15)
[2024-11-11] MEDS ORDERED: ACETAMINOPHEN 500 MG TABLET PO ONE (23:15)
== END 2024-11-11 23:19 | disposition home or self-care (01) ==
LOC: EMS 20:07
DX: R60.0 Localized edema (principal); F41.9 Anxiety disorder, unspecified; J45.909 Unspecified asthma, uncomplicated; F31.9 Bipolar disorder, unspecified; F20.9 Schizophrenia, unspecified; I10 Essential (primary) hypertension; K21.9 Gastro-esophageal reflux disease without esophagitis; Z79.899 Other long term (current) drug therapy; Z86.718 Personal history of other venous thrombosis and embolism; Z88.8 Allergy status to other drugs, medicaments and biological substances; Z90.49 Acquired absence of other specified parts of digestive tract; Z91.041 Radiographic dye allergy status; Z98.51 Tubal ligation status
CPT/HCPCS: 99282; Z7502

== ENCOUNTER 2024-11-18 18:25 | Emergency (ER) | payer MEDICAID ==
[~2024-11-18] VITALS: Ht 172.7 cm; Wt 79.5 kg
[~2024-11-18 18:25] MED LIST changes: +ACET-66 PO; +IBUP-1554 PO
[2024-11-18 18:33] VITALS: BP 135/74; PULSE 67; RESP 16; TEMP 98; O2SAT 98
[2024-11-18 19:45] LABS: BASOPHILS % (AUTO) 0.6 % (0.0-2.0); EOSINOPHILS % (AUTO) 0.8 % (1.0-6.0); HEMATOCRIT 36.6 % (36-46); HEMOGLOBIN 11.6 g/dL (12.0-16.0); LYMPHOCYTES # (AUTO) 2.6 K/uL (1.0-4.8); LYMPHOCYTES % (AUTO) 29.7 % (22.0-44.0); MEAN CORPUSCULAR HEMOGLOBIN 24.3 pg (26.0-34.0); MEAN CORPUSCULAR HGB CONC 31.8 G/dL (31.0-37.0); MEAN CORPUSCULAR VOLUME 77 fL (80-100); MONOCYTES # (AUTO) 0.9 K/uL (0.1-1.0); MONOCYTES % (AUTO) 10.8 % (2.0-9.0); NEUTROPHILS # (AUTO) 5.1 K/uL (1.8-7.7); NEUTROPHILS % (AUTO) 58.1 % (40.0-70.0); PLATELET COUNT (AUTO) 335 K/uL (150-450); RED BLOOD CELL COUNT(AUTO) 4.79 MIL/uL (4.00-5.20); WHITE BLOOD COUNT (AUTO) 8.8 K/uL (4.5-11.0)
[2024-11-18 19:56] LABS: ANION GAP 5 mmol/L (8-16); CARBON DIOXIDE 27 mmol/L (22-29); CHLORIDE 102 mmol/L (98-107); CREATININE 0.78 mg/dL (0.60-1.30); GLOMERULAR FILTR. RATE CALC > 60 mL/min (>60); GLUCOSE,RANDOM 274 mg/dL (70-110); POTASSIUM 3.7 mmol/L (3.5-5.1); SODIUM SERUM 134 mmol/L (136-145); UREA NITROGEN, BLOOD 5 mg/dL (7-18)
[2024-11-18 20:05] LABS: TROPONIN I-HIGH SENSITIVITY 15 ng/L (<51)
== END 2024-11-18 21:08 | disposition home or self-care (01) ==
LOC: EMS 18:25
DX: R07.89 Other chest pain (principal); M79.89 Other specified soft tissue disorders; F41.9 Anxiety disorder, unspecified; J45.909 Unspecified asthma, uncomplicated; F31.9 Bipolar disorder, unspecified; F20.9 Schizophrenia, unspecified; I10 Essential (primary) hypertension; K21.9 Gastro-esophageal reflux disease without esophagitis; Z79.899 Other long term (current) drug therapy; Z86.718 Personal history of other venous thrombosis and embolism; Z88.8 Allergy status to other drugs, medicaments and biological substances; Z90.49 Acquired absence of other specified parts of digestive tract; Z91.041 Radiographic dye allergy status; Z98.51 Tubal ligation status
CPT/HCPCS: 71045; 80048; 84484; 84703; 85025; 85379; 93005; 99285; 36415-L1; 36415-TC

== ENCOUNTER 2024-11-21 14:08 | Emergency (ER) | payer MEDICAID ==
[~2024-11-21] VITALS: Ht 165.1 cm; Wt 104.5 kg
[2024-11-21 14:11] VITALS: BP 148/73; PULSE 72; RESP 18; TEMP 98.6; O2SAT 99
== END 2024-11-21 16:23 | disposition home or self-care (01) ==
LOC: EMS 14:08
DX: M79.89 Other specified soft tissue disorders (principal); K21.9 Gastro-esophageal reflux disease without esophagitis; I10 Essential (primary) hypertension; F20.9 Schizophrenia, unspecified; J45.909 Unspecified asthma, uncomplicated; F41.9 Anxiety disorder, unspecified; R31.9 Hematuria, unspecified; Z79.899 Other long term (current) drug therapy; Z86.718 Personal history of other venous thrombosis and embolism; Z88.8 Allergy status to other drugs, medicaments and biological substances; Z90.49 Acquired absence of other specified parts of digestive tract; Z91.041 Radiographic dye allergy status; Z98.51 Tubal ligation status
CPT/HCPCS: 93971; 99284; Z7502

== ENCOUNTER 2024-11-30 16:58 | Emergency (ER) | payer MEDICAID ==
[~2024-11-30] VITALS: Ht 170.2 cm; Wt 105.9 kg
[2024-11-30 17:41] LABS: BASOPHILS % (AUTO) 0.7 % (0.0-2.0); EOSINOPHILS % (AUTO) 0.5 % (1.0-6.0); HEMATOCRIT 36.6 % (36-46); HEMOGLOBIN 11.3 g/dL (12.0-16.0); LYMPHOCYTES # (AUTO) 2.9 K/uL (1.0-4.8); LYMPHOCYTES % (AUTO) 24.3 % (22.0-44.0); MEAN CORPUSCULAR HEMOGLOBIN 23.5 pg (26.0-34.0); MEAN CORPUSCULAR VOLUME 76 fL (80-100); MONOCYTES # (AUTO) 1.5 K/uL (0.1-1.0); MONOCYTES % (AUTO) 12.6 % (2.0-9.0); NEUTROPHILS # (AUTO) 7.4 K/uL (1.8-7.7); NEUTROPHILS % (AUTO) 61.9 % (40.0-70.0); PLATELET COUNT (AUTO) 337 K/uL (150-450); RED BLOOD CELL COUNT(AUTO) 4.82 MIL/uL (4.00-5.20); RED CELL DISTRIBUTION WIDTH 15.9 % (11.5-14.5); WHITE BLOOD COUNT (AUTO) 11.9 K/uL (4.5-11.0)
[2024-11-30 17:51] LABS: ANION GAP 10 mmol/L (8-16); CALCIUM, TOTAL 8.7 mg/dL (8.8-10.5); CARBON DIOXIDE 27 mmol/L (22-29); CHLORIDE 101 mmol/L (98-107); CREATININE 1.17 mg/dL (0.60-1.30); GLOMERULAR FILTR. RATE CALC 50 mL/min (>60); GLUCOSE,RANDOM 267 mg/dL (70-110); POTASSIUM 3.9 mmol/L (3.5-5.1); SODIUM SERUM 138 mmol/L (136-145); UREA NITROGEN, BLOOD 12 mg/dL (7-18)
[2024-11-30 18:00] LABS: TROPONIN I-HIGH SENSITIVITY 32 ng/L (<51)
[2024-11-30 18:04] LABS: B-TYPE NATRIURETIC PEPTIDE 16 pg/mL (0-100)
[2024-11-30 18:12] LABS: PLATELET MORPHOLOGY COMMENT GIANT PLTS PRESENT; RBC MORPHOLOGY COMMENT ABNORMAL RBC MORPH
[2024-11-30 19:46] VITALS: BP 145/79; PULSE 84; RESP 15; TEMP 98.2; O2SAT 98
== END 2024-11-30 20:09 | disposition home or self-care (01) ==
LOC: EMS 16:58
DX: R00.0 Tachycardia, unspecified (principal); R00.2 Palpitations; D64.9 Anemia, unspecified; J45.909 Unspecified asthma, uncomplicated; I10 Essential (primary) hypertension; K21.9 Gastro-esophageal reflux disease without esophagitis; F20.9 Schizophrenia, unspecified; F31.9 Bipolar disorder, unspecified; Z88.8 Allergy status to other drugs, medicaments and biological substances; Z90.49 Acquired absence of other specified parts of digestive tract; Z91.041 Radiographic dye allergy status; Z98.51 Tubal ligation status; Z79.899 Other long term (current) drug therapy
CPT/HCPCS: 71045; 80048; 83880; 84484; 85025; 93005; 99285; 36415-L1; 36415-TC

== ENCOUNTER 2024-12-05 10:01 | Emergency (ER) | payer MEDICAID ==
[~2024-12-05] VITALS: Ht 165.1 cm; Wt 104.5 kg
[2024-12-05 10:03] VITALS: TEMP 98
[2024-12-05 11:29] VITALS: BP 131/63; PULSE 63; RESP 18; O2SAT 99
== END 2024-12-05 11:54 | disposition home or self-care (01) ==
LOC: EMS 10:37
DX: F31.9 Bipolar disorder, unspecified (principal); F41.9 Anxiety disorder, unspecified; R07.89 Other chest pain; J45.909 Unspecified asthma, uncomplicated; I10 Essential (primary) hypertension; F20.9 Schizophrenia, unspecified; K21.9 Gastro-esophageal reflux disease without esophagitis; Z79.899 Other long term (current) drug therapy; Z86.718 Personal history of other venous thrombosis and embolism; Z88.8 Allergy status to other drugs, medicaments and biological substances; Z90.49 Acquired absence of other specified parts of digestive tract; Z91.041 Radiographic dye allergy status; Z98.51 Tubal ligation status
CPT/HCPCS: 93005; 99283; 99284

== ENCOUNTER → 2024-12-15 | Emergency (ER) | payer MEDICAID ==
[~2024-12-15] VITALS: Ht 165.1 cm; Wt 104.5 kg
[2024-12-15 16:58] VITALS: BP 129/61; PULSE 70; RESP 20; TEMP 98.2; O2SAT 99
[2024-12-15 18:28] LABS: TROPONIN I-HIGH SENSITIVITY 17 ng/L (<51)
== END | disposition home or self-care (01) ==
LOC: EMS 17:08
DX: F41.9 Anxiety disorder, unspecified (principal); F31.9 Bipolar disorder, unspecified; R07.89 Other chest pain; J45.909 Unspecified asthma, uncomplicated; K21.9 Gastro-esophageal reflux disease without esophagitis; I10 Essential (primary) hypertension; F20.9 Schizophrenia, unspecified; Z79.899 Other long term (current) drug therapy; Z86.718 Personal history of other venous thrombosis and embolism; Z88.8 Allergy status to other drugs, medicaments and biological substances; Z90.49 Acquired absence of other specified parts of digestive tract; Z91.041 Radiographic dye allergy status; Z98.51 Tubal ligation status
CPT/HCPCS: 82962; 84484; 93005; 99284

== ENCOUNTER 2025-03-29 01:57 | Emergency (ER) | payer MEDICAID ==
[~2025-03-29] VITALS: Ht 165.1 cm; Wt 107.0 kg
[2025-03-29 02:15] VITALS: TEMP 98.105288
[2025-03-29] MEDS: ACETAMINOPHEN 500 MG TABLET PO ONE (02:59)
[2025-03-29] MEDS: IBUPROFEN 400 MG TABLET PO ONE (03:00)
[2025-03-29 03:31] LABS: BASOPHILS % (AUTO) 0.7 % (0.0-2.0); EOSINOPHILS % (AUTO) 2.7 % (1.0-6.0); HEMATOCRIT 43.1 % (36-46); HEMOGLOBIN 14.9 g/dL (12.0-16.0); LYMPHOCYTES # (AUTO) 2.7 K/uL (1.0-4.8); LYMPHOCYTES % (AUTO) 25.9 % (22.0-44.0); MEAN CORPUSCULAR HGB CONC 34.6 G/dL (31.0-37.0); MEAN CORPUSCULAR VOLUME 84 fL (80-100); MONOCYTES # (AUTO) 1.3 K/uL (0.1-1.0); MONOCYTES % (AUTO) 12.9 % (2.0-9.0); NEUTROPHILS % (AUTO) 57.8 % (40.0-70.0); PLATELET COUNT (AUTO) 209 K/uL (150-450); RED BLOOD CELL COUNT(AUTO) 5.14 MIL/uL (4.00-5.20); RED CELL DISTRIBUTION WIDTH 18.1 % (11.5-14.5); WHITE BLOOD COUNT (AUTO) 10.4 K/uL (4.5-11.0)
[2025-03-29 03:37] LABS: ANION GAP 10 mmol/L (8-16); CALCIUM, TOTAL 10.2 mg/dL (8.8-10.5); CARBON DIOXIDE 26 mmol/L (22-29); CHLORIDE 96 mmol/L (98-107); CREATININE 1.04 mg/dL (0.60-1.30); GLOMERULAR FILTR. RATE CALC 57 mL/min (>60); GLUCOSE,RANDOM 96 mg/dL (70-110); POTASSIUM 4.3 mmol/L (3.5-5.1); SODIUM SERUM 132 mmol/L (136-145); UREA NITROGEN, BLOOD 12 mg/dL (7-18)
[2025-03-29 03:41] VITALS: BP 122/84; PULSE 90; RESP 17; O2SAT 98
[2025-03-29 03:47] LABS: TROPONIN I-HIGH SENSITIVITY 13 ng/L (<51)
[2025-03-29 03:48] LABS: HCG,QUANTITATIVE 1 mIU/mL (0-6); LIPASE 19 U/L (16-77)
[2025-03-29 04:10] LABS: RBC MORPHOLOGY COMMENT ABNORMAL RBC MORPH
== END 2025-03-29 04:35 | disposition home or self-care (01) ==
LOC: EMS 01:57
DX: R07.9 Chest pain, unspecified (principal); I10 Essential (primary) hypertension; J45.909 Unspecified asthma, uncomplicated; F25.9 Schizoaffective disorder, unspecified; K21.9 Gastro-esophageal reflux disease without esophagitis; R10.2 Pelvic and perineal pain; Z88.8 Allergy status to other drugs, medicaments and biological substances; Z91.010 Allergy to peanuts; Z91.041 Radiographic dye allergy status; Z86.718 Personal history of other venous thrombosis and embolism; Z90.49 Acquired absence of other specified parts of digestive tract; Z98.51 Tubal ligation status; Z79.899 Other long term (current) drug therapy
CPT/HCPCS: 71045; 80048; 83690; 84484; 84702; 85025; 93005; 99285; 36415-L1; 36415-TC

== ENCOUNTER 2025-04-19 15:29 | Emergency (ER) | payer MEDICAID ==
[~2025-04-19] VITALS: Ht 165.1 cm; Wt 104.5 kg
[2025-04-19 15:34] VITALS: TEMP 98.4
[2025-04-19] MEDS ORDERED: METF-81 PO (15:34)
[2025-04-19] MEDS ORDERED: LAMO25TA36 PO (15:34)
[2025-04-19 15:51] LABS: GLUCOMETER DEV NAME(LOC) ER.7; GLUCOSE,POINT OF CARE 121 MG/DL (70-110)
[2025-04-19] MEDS ORDERED: CEPH-558 PO (18:06)
[2025-04-19 18:11] VITALS: BP 121/80; PULSE 96; RESP 18; O2SAT 98
== END 2025-04-19 18:16 | disposition home or self-care (01) ==
LOC: EMS 15:29
DX: L03.032 Cellulitis of left toe (principal); F41.9 Anxiety disorder, unspecified; E11.9 Type 2 diabetes mellitus without complications; F20.9 Schizophrenia, unspecified; I10 Essential (primary) hypertension; J45.909 Unspecified asthma, uncomplicated; K21.9 Gastro-esophageal reflux disease without esophagitis; Z86.718 Personal history of other venous thrombosis and embolism; Z98.51 Tubal ligation status; Z91.041 Radiographic dye allergy status; Z90.49 Acquired absence of other specified parts of digestive tract; Z88.8 Allergy status to other drugs, medicaments and biological substances; Z79.899 Other long term (current) drug therapy; X58.XXXA Exposure to other specified factors, initial encounter
CPT/HCPCS: 82962; 99283

== ENCOUNTER 2025-04-24 13:21 | Emergency (ER) | payer MEDICAID ==
[~2025-04-24] VITALS: Ht 167.6 cm; Wt 106.8 kg
[~2025-04-24 13:21] MED LIST changes: +CEPH-558 PO; -IBUP-1554 PO; -IBUP-2070 PO; -KETO15CR2 TP; +LAMO25TA36 PO; +METF-81 PO; -OMEP40CA21 PO; -ONDA-243 PO; -ROSU20TA98 PO; -SUCR1TAB2 PO
[2025-04-24 13:31] VITALS: BP 117/76; PULSE 91; RESP 18; TEMP 98.7; O2SAT 95
[2025-04-24 13:46] LABS: GLUCOMETER DEV NAME(LOC) ER.7; GLUCOSE,POINT OF CARE 138 MG/DL (70-110)
[2025-04-24] MEDS ORDERED: HYDR30CR39 TP (14:23)
== END 2025-04-24 14:37 | disposition home or self-care (01) ==
LOC: EMS 13:22
DX: F25.0 Schizoaffective disorder, bipolar type (principal); N76.0 Acute vaginitis; F41.9 Anxiety disorder, unspecified; J45.909 Unspecified asthma, uncomplicated; F32.A Depression, unspecified; E11.9 Type 2 diabetes mellitus without complications; I10 Essential (primary) hypertension; K21.9 Gastro-esophageal reflux disease without esophagitis; Z86.718 Personal history of other venous thrombosis and embolism; Z90.49 Acquired absence of other specified parts of digestive tract; Z98.51 Tubal ligation status; Z91.041 Radiographic dye allergy status; Z98.890 Other specified postprocedural states; Z88.8 Allergy status to other drugs, medicaments and biological substances; Z79.899 Other long term (current) drug therapy; Z91.010 Allergy to peanuts
CPT/HCPCS: 82962; 99282

== ENCOUNTER 2025-05-21 12:46 | Emergency (ER) | payer MEDICAID ==
[~2025-05-21] VITALS: Ht 165.1 cm; Wt 107.3 kg
[~2025-05-21 12:46] MED LIST changes: -ACET-66 PO; -CEPH-558 PO; +HYDR30CR39 TP
[2025-05-21 12:52] VITALS: TEMP 98.1
[2025-05-21 13:11] LABS: GLUCOMETER DEV NAME(LOC) ER.7; GLUCOSE,POINT OF CARE 143 MG/DL (70-110)
[2025-05-21 13:17] LABS: PLATELET COUNT (AUTO) 232 K/uL (150-450); RED BLOOD CELL COUNT(AUTO) 5.17 MIL/uL (4.00-5.20); RED CELL DISTRIBUTION WIDTH 14.5 % (11.5-14.5); WHITE BLOOD COUNT (AUTO) 6.4 K/uL (4.5-11.0)
[2025-05-21 13:26] LABS: CALCIUM, TOTAL 8.5 mg/dL (8.8-10.5); CREATININE 0.97 mg/dL (0.60-1.30); GLOMERULAR FILTR. RATE CALC > 60 mL/min (>60); GLUCOSE,RANDOM 155 mg/dL (70-110); SODIUM SERUM 138 mmol/L (136-145); UREA NITROGEN, BLOOD 10 mg/dL (7-18)
[2025-05-21 16:07] VITALS: BP 110/75; PULSE 80; RESP 18; O2SAT 95
== END 2025-05-21 16:13 | disposition home or self-care (01) ==
LOC: EMS 12:52
DX: S90.421A Blister (nonthermal), right great toe, initial encounter (principal); S90.121A Contusion of right lesser toe(s) without damage to nail, initial encounter; L03.032 Cellulitis of left toe; F41.9 Anxiety disorder, unspecified; E11.9 Type 2 diabetes mellitus without complications; F20.9 Schizophrenia, unspecified; I10 Essential (primary) hypertension; J45.909 Unspecified asthma, uncomplicated; K21.9 Gastro-esophageal reflux disease without esophagitis; F31.9 Bipolar disorder, unspecified; Z98.51 Tubal ligation status; Z90.49 Acquired absence of other specified parts of digestive tract; Z86.718 Personal history of other venous thrombosis and embolism; Z91.041 Radiographic dye allergy status; Z88.8 Allergy status to other drugs, medicaments and biological substances; Z79.899 Other long term (current) drug therapy; Z98.890 Other specified postprocedural states; X58.XXXA Exposure to other specified factors, initial encounter; Y93.89 Activity, other specified; Y92.89 Other specified places as the place of occurrence of the external cause; Y99.9 Unspecified external cause status
CPT/HCPCS: 80048; 82962; 85025; 99283

== ENCOUNTER → 2025-05-27 | Emergency (ER) | payer MEDICAID ==
[~2025-05-27] VITALS: Ht 170.2 cm; Wt 113.6 kg
[2025-05-27 17:28] VITALS: TEMP 97.6
[2025-05-27 17:45] LABS: GLUCOMETER DEV NAME(LOC) ER.7; GLUCOSE,POINT OF CARE 154 MG/DL (70-110)
[2025-05-27 20:03] VITALS: BP 125/84; PULSE 95; RESP 18; O2SAT 97
== END | disposition still patient (30) ==
LOC: EMS 17:21
DX: N93.9 Abnormal uterine and vaginal bleeding, unspecified (principal); T19.2XXA Foreign body in vulva and vagina, initial encounter; F41.9 Anxiety disorder, unspecified; E11.9 Type 2 diabetes mellitus without complications; F20.9 Schizophrenia, unspecified; F31.9 Bipolar disorder, unspecified; I10 Essential (primary) hypertension; J45.909 Unspecified asthma, uncomplicated; K21.9 Gastro-esophageal reflux disease without esophagitis; Z98.51 Tubal ligation status; Z90.49 Acquired absence of other specified parts of digestive tract; Z88.8 Allergy status to other drugs, medicaments and biological substances; Z91.041 Radiographic dye allergy status; Z86.718 Personal history of other venous thrombosis and embolism; Z98.890 Other specified postprocedural states; Z79.899 Other long term (current) drug therapy; Z91.010 Allergy to peanuts; W44.9XXA Unspecified foreign body entering into or through a natural orifice, initial encounter
CPT/HCPCS: 82962; 99282

== ENCOUNTER 2025-09-23 14:23 | Emergency (ER) | payer MEDICAID ==
[~2025-09-23] VITALS: Ht 165.1 cm; Wt 109.1 kg
[~2025-09-23 14:23] MED LIST changes: -HYDR30CR39 TP; -LAMO25TA36 PO
[2025-09-23 14:26] VITALS: TEMP 98.2
[2025-09-23] MEDS ORDERED: ROSU20TA98 PO (14:31)
[2025-09-23] MEDS ORDERED: LURA20TA PO (14:31)
[2025-09-23] MEDS ORDERED: LURA80TA2 PO (14:31)
[2025-09-23] MEDS ORDERED: METF-1211 PO (14:31)
[2025-09-23] MEDS ORDERED: ATEN-73 PO (14:31)
[2025-09-23 14:55] LABS: PLATELET COUNT (AUTO) 278 K/uL (150-450); RED BLOOD CELL COUNT(AUTO) 5.23 MIL/uL (4.00-5.20); RED CELL DISTRIBUTION WIDTH 13.3 % (11.5-14.5); WHITE BLOOD COUNT (AUTO) 9.7 K/uL (4.5-11.0)
[2025-09-23 14:56] LABS: GLUCOMETER DEV NAME(LOC) ERT.7; GLUCOSE,POINT OF CARE 113 MG/DL (70-110)
[2025-09-23 15:00] LABS: CALCIUM, TOTAL 9.9 mg/dL (8.8-10.5); CREATININE 0.96 mg/dL (0.60-1.30); GLOMERULAR FILTR. RATE CALC > 60 mL/min (>60); GLUCOSE,RANDOM 112 mg/dL (70-110); SODIUM SERUM 137 mmol/L (136-145); UREA NITROGEN, BLOOD 12 mg/dL (7-18)
[2025-09-23] MEDS: BACITRACIN 0.9 GM PACKET OINTMENT TP ONE (16:15)
[2025-09-23 16:34] VITALS: BP 131/87; PULSE 102; RESP 18; O2SAT 95
== END 2025-09-23 16:39 | disposition home or self-care (01) ==
LOC: EMS 14:23
DX: R58 Hemorrhage, not elsewhere classified (principal); Z48.01 Encounter for change or removal of surgical wound dressing; F31.9 Bipolar disorder, unspecified; I10 Essential (primary) hypertension; J45.909 Unspecified asthma, uncomplicated; E11.9 Type 2 diabetes mellitus without complications; E78.00 Pure hypercholesterolemia, unspecified; F20.9 Schizophrenia, unspecified; K21.9 Gastro-esophageal reflux disease without esophagitis; Z88.8 Allergy status to other drugs, medicaments and biological substances; Z90.49 Acquired absence of other specified parts of digestive tract; Z91.010 Allergy to peanuts; Z91.041 Radiographic dye allergy status; Z98.51 Tubal ligation status; Z86.718 Personal history of other venous thrombosis and embolism; Z79.899 Other long term (current) drug therapy
CPT/HCPCS: 80048; 82962; 85025; 85730; 99283